=== PATIENT | male | born 2000 | race Caucasian/White ===

== ENCOUNTER 2019-01-25 03:28 | Emergency (ER) | payer OTHER, SELFPAY ==
[2019-01-25 03:30] VITALS: BP 143/82; PULSE 98; RESP 16; TEMP 37.1; O2SAT 97; BMI 25.9
[2019-01-25] MEDS: Ondansetron ODT 4 MG Tablet PO (04:20)
[2019-01-25] MEDS: Acetaminophen 500 MG Tablet 1000 MG PO (04:20)
--- NOTE | 2019-01-25 04:44 | ED.VISSUMM ---
- ER Visit Summary Date of Service: 01/25/19 Chief Complaint: Questionable coughing up blood History of Present Illness: The patient is a 18 M who tells me he was nauseated all day yesterday. A friend gave him red Anibal-Aid to drink. He ended up vomiting this up. He advises me that he vomited up red material, did not cough up blood. He is also complaining of sore throat for the past 3 days and is concerned he may have strep throat. He denies fever. He has not had dark or bloody stool. Physical Examination: Vital signs unremarkable. Patient sitting upright in bed no acute distress. Head and neck examination reveals moist mucous membranes. He does have posterior pharyngeal sinus drainage. Tonsils are 2+ with no exudate. Uvula is midline. Heart is regular rate and rhythm. Lung sounds are clear abdomen is soft with no focal tenderness. Hypoactive bowel sounds present. Test Results: Rapid strep is obtained and negative. Emergency Department Course and Treatment: Patient was given Zofran and Tylenol. On repeat evaluation he is tolerating p.o. Test results discussed with patient and family at bedside. He is given a prescription for Zofran as needed. Treatment Plan: [] Disposition: Discharge Impression: 1. Viral pharyngitis 2. Vomiting, improved This note was generated with [employer] dictation software. It may contain incorrect words, spelling, and punctuation that were not noted in review of the chart prior to signing ED Disposition - Plan for ED Patient: Disposition: Home or Assisted Living Instructions: ED Pharyngitis Viral, ED Nausea Vomiting Prescriptions: Ondansetron [Zofran Odt] 4 mg PO Q8H PRN PRN #10 tablet PRN Reason: Nausea Referrals: Anel Andersen MD [Primary Care Provider] - 3-5 Days if not improving
[2019-01-25 04:54] VITALS: PULSE 77; RESP 16; O2SAT 97
== END 2019-01-25 04:54 | disposition home or self-care (01) ==
PROVIDERS: Emergency Provider Emergency Medicine; Family Provider Pediatrics; PCP Pediatrics
DX: J02.9 Acute pharyngitis, unspecified (principal); R11.2 Nausea with vomiting, unspecified; F90.9 Attention-deficit hyperactivity disorder, unspecified type; Z72.0 Tobacco use
CPT/HCPCS: 87880; 99283

== ENCOUNTER 2020-02-23 01:26 | Emergency (ER) | payer SELFPAY ==
[2020-02-23 01:27] VITALS: BP 132/83; PULSE 70; RESP 18; TEMP 36.4; O2SAT 99; BMI 25.4
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
== END 2020-02-23 01:55 | disposition home or self-care (01) ==
LOC: ED 01:46
PROVIDERS: Emergency Provider Emergency Medicine; PCP Pediatrics
DX: S50.811A Abrasion of right forearm, initial encounter (principal); S90.512A Abrasion, left ankle, initial encounter; V19.9XXA Pedal cyclist (driver) (passenger) injured in unspecified traffic accident, initial encounter; Y93.55 Activity, bike riding; Y92.9 Unspecified place or not applicable; F17.200 Nicotine dependence, unspecified, uncomplicated
CPT/HCPCS: 99282

== ENCOUNTER → 2020-10-20 15:01 | Outpatient (CLI) | payer MEDICAID, SELFPAY | PROVIDERS: PCP Pediatrics; Referring Provider Obstetrics & Gynecology; Visit Provider Obstetrics & Gynecology | DX: Z31.440 Encounter of male for testing for genetic disease carrier status for procreative management (principal) | CPT/HCPCS: 36415 ==

== ENCOUNTER 2020-11-23 21:12 | Emergency (ER) | payer MEDICAID, SELFPAY ==
[2020-11-23 21:13] VITALS: BP 128/82; PULSE 75; RESP 18; TEMP 36.1; O2SAT 99; BMI 30.1
--- NOTE | 2020-11-23 21:32 | ED.DCSUM_ITS ---
History of Present Illness Chief Complaint: Wound Check Narrative: Patient presents with right great toe infection for the past 2 days. He thinks there may be an ingrown toenail. No fever chills no streaking. Pain is mild to moderate. Past medical history: None Medications: None Social history: Noncontributory Review of systems: General: Denies: Fever Musculoskeletal: No pain Skin: No other rashes or lacerations Neurological: Normal strength and sensation Hematologic: Denies: Easy bruising, Easy bleeding Physical exam General: Well nourished, Well developed, No Acute Distress Head: Normocephalic, Atraumatic Cardiovascular: Normal pulses Respiratory: No distress Back: Nontender Extremities: There is a small paronychia of the right great toe. No ingrown toenail. This was drained just by putting pressure on it. Now it is fully drained. No cellulitis. Skin: Normal color, otherwise as above Neurological: Normal strength and sensation Past Medical History - Allergies and Home Meds Allergies/Adverse Reactions: Allergies No Known Allergies Allergy (Verified 11/23/20 21:15) Primary Care Physician: NOT,DEFINED [Primary Care Provider] - Surgical History: no surgical history Smoking Status: Current every day smoker Physical Exam Vital Signs/Narrative: Vital Signs Temp Pulse Resp BP Pulse Ox 11/23/20 21:13 97 F L 75 18 128/82 H 99 Diagnostic/Tx/Re-eval - Medical Decision Making Paronychia is self draining. I will give antibiotics and discharged with reassurance. ED Disposition - Plan for ED Patient: Disposition: Home or Assisted Living Diagnosis: Paronychia Instructions: ED Paronychia of the Finger or Toe Prescriptions: Cephalexin [Keflex] 500 mg PO Q12 #14 cap Transmission Status: Pending to [facility] Referrals: NOT,DEFINED [Primary Care Provider] - 2 Days
[2020-11-23] MEDS: Cephalexin 250 MG Capsule 500 MG PO (21:58)
== END 2020-11-23 22:00 | disposition home or self-care (01) ==
LOC: ED 21:46
PROVIDERS: Emergency Provider Emergency Medicine
DX: L03.031 Cellulitis of right toe (principal); F17.200 Nicotine dependence, unspecified, uncomplicated
CPT/HCPCS: 99283

== ENCOUNTER 2021-08-30 16:03 | Emergency (ER) | payer MEDICAID, SELFPAY ==
[2021-08-30 16:04] VITALS: BP 139/83; PULSE 93; RESP 18; TEMP 36.6; O2SAT 97; BMI 25.1
--- NOTE | 2021-08-30 16:08 | RAD_ITS ---
STUDY: X-RAY CHEST REASON FOR EXAM: Male, 21 years old. cough TECHNIQUE: AP COMPARISON: None. FINDINGS: The lungs are clear and expanded. There is no demonstrated pleural abnormality. Normal size heart. Normal mediastinum and sari. Normal visualized pulmonary arteries. Normal visualized aortic arch and descending thoracic aorta. Normal visualized thoracic spine. Normal visualized ribs, clavicles, and shoulders. There is no demonstrated abnormality of the visualized soft tissue structures of the upper abdomen. RAD/Chest 1 View IMPRESSION: Nonacute portable x-ray examination of the chest. Electronically Signed: Rashawn Solomon MD ([place]) at 16:18 EST , Service support ,
[2021-08-30 17:16] VITALS: BP 132/86; PULSE 86; RESP 16; TEMP 36.9; O2SAT 100
--- NOTE | 2021-08-30 17:38 | EX.ED.DYSGE1 ---
HPI History of Present Illness Chief Complaint: Cough Informant: patient Narrative Narrative: 21-year-old male states that 4 days ago he began to feel ill with malaise/fatigue body aches rhinorrhea and cough. No fever or sore throat. No vomiting or diarrhea. He is not Covid vaccinated. He notes a history of asthma as a child and states that he does feel wheezy/chest tightness. [facility] Medical History (Updated 08/30/21 @ 17:[address] Jan Lin DO) Asthma Medical History no medical history Home Medications prednisone 60 mg PO DAILY #12 tablet 08/30/21 [Rx Last Taken Unknown] Allergy/AdvReac Type Severity Reaction Status Date / Time No Known Allergies Allergy Verified 11/23/20 21:15 Surgical History no surgical history Social History (Updated 08/30/21 @ 17:[address] Jan Lin DO) current gender identity: male Smoking Status: Current every day smoker tobacco type: cigarettes ROS ROS ED Constitutional Constitutional ED: Reports chills; Denies fever(s) or weight loss Eyes Eyes: Denies change in vision or diplopia ENT ENT ED: Reports rhinorrhea; Denies ear pain or sore throat Cardiovascular Cardiovascular: Denies chest pain, orthopnea, palpitations or racing heartbeat Respiratory/Chest Respiratory/Chest: Reports cough and dyspnea; Denies orthopnea Gastrointestinal Gastrointestinal: Denies abdominal pain, diarrhea, nausea or vomiting Genitourinary Genitourinary ED: Denies dysuria, hematuria or urinary frequency Musculoskeletal Musculoskeletal: Reports myalgias; Denies arthralgias Integumentary Denies abscess or rash Neurologic Neurologic: Denies headache(s) or weakness Psychiatric Psychiatric: Denies anxiety, depression, suicidal ideation or suicidal thoughts Endocrine Endocrinology: Denies polydipsia, polyphagia or polyuria Allergic/Immunologic Allergic/Immunologic ED: Denies mouth swelling, tongue swelling or urticaria EXAM Physical Exam Const Vital Signs: 08/30/21 16:04 08/30/21 17:16 Temperature 98 F 98.4 F Temperature Source Temporal Temporal Pulse Rate 93 86 Respiratory Rate 18 16 Respiratory Effort Short of Breath Labored Respiratory Depth Normal Respiratory Pattern Normal Blood Pressure 139/83 H 132/86 H Blood Pressure Mean 101 101 Pulse Ox 97 100 Oxygen Delivery Method Room Air Room Air Positive well nourished and well developed General Appearance ED: well developed HEENT Reports normocephalic, head/scalp atraumatic, TM's clear and moist mucous membranes HEENT Narrative: Clear rhinorrhea Negative for trauma Tympanic Membrane ED: Yes TM's clear Eyes PERRL and EOMs intact bilaterally Neck no lymphadenopathy, supple and no JVD Resp normal respiratory effort Auscultation: rhonchi and wheezes expiratory wheezes Cardio regular rate, regular rhythm and no murmurs GI normal to inspection, nondistended, normoactive bowel sounds and non-tender Palpation: soft Back/Spine no CVA tenderness and normal ROM Extremity normal to inspection General Extremety ED: Negative for edema General Extremity: Negative for edema Neuro oriented x3 and CN's II-XII intact bilaterally Sensorium / Orientation: alert Motor Exam: strength 5/5 throughout Psych mental status grossly normal Mood & Affect: Negative for depressed or tearful Skin no rashes or lesions noted and no wounds MDM MDM MDM Narrative Medical decision making narrative: Covid test is negative. My interpretation of the chest x-ray is no acute process. Patient received a DuoNeb as well as prednisone. I will prescribe albuterol MDI as well as continued prednisone. Smoking cessation counseling was provided. Radiography Diagnostic Testing: Clinical Impression(s) from Imaging Studies Chest X-Ray 08/30/21 16:08 IMPRESSION: Nonacute portable x-ray examination of the chest. Electronically Signed: Rashawn Solomon MD ([place]) at 16:18 EST , Service support , Discharge Plan Triage Chief Complaint: Cough ED Provider: Jan Lin Dx/Rx/DC Orders Clinical Impression: Acute bronchitis with bronchospasm Instructions: ED Bronchitis with Wheezing (Adult) Prescriptions: New prednisone 20 MG tablet 60 mg PO DAILY Qty: 12 RF: 0 Primary Care Provider: Care Physician,No Primary Referrals: Bentley Hannon MD [STAFF PHYSICIAN] - As Needed (for primary care) Care Physician,No Primary [Primary Care Provider] - Disposition Disposition: Home, Self Care
[2021-08-30] MEDS: predniSONE 20 MG Tablet 60 MG PO (17:40)
[2021-08-30] MEDS: Ipratropium/Albuterol Sulfate 3 ML AMPUL.NEB INHALATION (17:47)
[2021-08-30] MEDS: INHALER, ASSIST DEVICES 1 EACH SPACER INHALATION (17:47)
== END 2021-08-30 18:05 | disposition home or self-care (01) ==
PROVIDERS: Emergency Provider Emergency Medicine
DX: J20.9 Acute bronchitis, unspecified (principal); J45.909 Unspecified asthma, uncomplicated; F17.210 Nicotine dependence, cigarettes, uncomplicated
CPT/HCPCS: 71045; 87426; 94640; 99283

== ENCOUNTER 2021-09-17 07:27 | Emergency (ER) | payer MEDICAID, SELFPAY ==
[2021-09-17 07:28] VITALS: BP 127/60; PULSE 68; RESP 16; TEMP 35.8; O2SAT 98; BMI 27.3
--- NOTE | 2021-09-17 07:41 | EX.ED.DYSGE1 ---
HPI History of Present Illness Chief Complaint: Abd Pain Informant: patient Narrative Narrative: And states that he ate some hamburger helper made with beef that he got from the [employer] [facility], [place] [employer]. He states he normally gets an upset stomach when he eats hamburger helper. This happened but was little bit worse than normal. He has vomited a few times. No blood has been seen. Slightly soft bowel movement but no diarrhea. All his discomfort is in the epigastric area. It comes and goes. He gets cramping he will vomit and then the discomfort goes away. It is getting progressively less. No fever. No history of surgical in the abdomen. No personal or family history of Crohn's or ulcerative colitis. [facility] Medical History (Updated 09/17/21 @ 08:[address] Prince Judd MD) Asthma Medical History no medical history no medical history Home Medications dicyclomine 20 mg PO TID PRN #10 tab 09/17/21 [Rx Last Taken Unknown] ondansetron 4 mg PO Q8H PRN #10 tab 09/17/21 [Rx Last Taken Unknown] Allergy/AdvReac Type Severity Reaction Status Date / Time No Known Allergies Allergy Verified 11/23/20 21:15 Surgical History History of adenoidectomy Social History Smoking Status: Current every day smoker tobacco type: cigarettes ROS ROS ED Constitutional Constitutional ED: Denies chills or fever(s) ENT ENT ED: Denies rhinorrhea or sore throat Cardiovascular Cardiovascular: Denies chest pain or palpitations Respiratory/Chest Respiratory/Chest: Denies cough or dyspnea Gastrointestinal Gastrointestinal: Reports abdominal pain, diarrhea, nausea and vomiting; Denies constipation or melena Genitourinary Genitourinary ED: Denies dysuria Musculoskeletal Musculoskeletal: Denies back pain Integumentary Denies rash Neurologic Neurologic: Denies headache(s) Endocrine Endocrinology: Denies polydipsia or polyuria Allergic/Immunologic Allergic/Immunologic ED: Denies mouth swelling or urticaria EXAM Physical Exam Const Vital Signs: 09/17/21 07:28 Temperature 96.5 F L Temperature Source Temporal Pulse Rate 68 Respiratory Rate 16 Blood Pressure 127/60 H Blood Pressure Mean 82 Pulse Ox 98 Oxygen Delivery Method Room Air Positive well nourished and well developed General Appearance ED: well developed and NAD HEENT Reports dry mucous membranes HEENT Narrative: Mildly dry mucous membranes. Mouth ED: Yes dry mucous membranes Mouth: dry mucous membranes Eyes General Eye ED: Negative for scleral icterus Neck no JVD Resp normal respiratory effort and clear to auscultation bilaterally Effort and Inspection: Negative for pain with movement Auscultation: Negative for rales, rhonchi or wheezes Cardio regular rate and regular rhythm GI normal to inspection, nondistended, normoactive bowel sounds and non-distended GI Narrative: Possible mild epigastric tenderness only with deep palpation. No right upper quadrant tenderness. No discomfort by history or exam in the lower abdomen. No rashes. No hernia noted. Palpation: soft Back/Spine no CVA tenderness Extremity normal to inspection Neuro oriented x3 Sensorium / Orientation: alert Psych mental status grossly normal Skin no rashes or lesions noted MDM MDM MDM Narrative Medical decision making narrative: Patient CBC, electrolytes, liver function test and lipase show no marked abnormalities. Patient's recheck. He has no nausea. He has had no vomiting. His abdomen is not sore cramping. He has no tenderness in his abdomen. He feels markedly improved. I think this is likely due to the foods that he ate. It is improving before he came in here and improved now even more. I do not think further evaluation, imaging or consultation as needed. We did discuss reasons to return that would include return of pain, fevers, recurrent vomiting, blood in vomitus or stool or other concerns. Lab Data Attestation: I reviewed the patient's lab results. Labs: Laboratory Results - last 24 hr 09/17/21 09/17/21 07:40 07:40 WBC 9.0 RBC 4.98 Hgb 14.4 Hct 43.0 MCV 86.3 MCH 28.9 MCHC 33.5 RDW Std Deviation 39.5 RDW Coeff of Bart 12.7 Plt Count 292 MPV 8.3 Immature Gran % (Auto) 0.300 Neut % (Auto) 68.6 Lymph % (Auto) 18.3 L [place] % (Auto) 11.3 H Eos % (Auto) 1.1 Baso % (Auto) 0.4 Absolute Neuts (auto) 6.1 Absolute Lymphs (auto) 1.64 Nucleated RBC % 0 Sodium 139 Potassium 3.6 Chloride 104 Carbon Dioxide 27.0 Anion Gap 8 BUN 22 H Creatinine 0.99 Estim Creat Clear Calc 123.60 Est GFR (MDRD) Af Amer 120 Est GFR (MDRD) Non-Af 100 BUN/Creatinine Ratio 22.3 H Glucose 111 H Calcium 9.3 Total Bilirubin 1.00 AST 12 L ALT 27 Alkaline Phosphatase 69 Total Protein 8.1 Albumin 4.3 Globulin 3.8 Albumin/Globulin Ratio 1.1 Lipase 247 Discharge Plan Triage Chief Complaint: Abd Pain ED Provider: Prince Judd Dx/Rx/DC Orders Clinical Impression: Acute epigastric pain, Nausea & vomiting Instructions: ED Epigastric Pain Uncertain Cause Prescriptions: New ondansetron 4 mg tablet,disintegrating 4 mg PO Q8H PRN (Reason: nausea and vomiting) Qty: 10 RF: 0 dicyclomine 20 mg tablet 20 mg PO TID PRN (Reason: cramping) Qty: 10 RF: 0 Primary Care Provider: Care Physician,No Primary Referrals: Marilyn Reveles MD [STAFF PHYSICIAN] - 3-5 Days if not improving Care Physician,No Primary [Primary Care Provider] - Disposition Disposition: Home, Self Care
[2021-09-17] MEDS: 0.9% Normal Saline 1,000 ML 1000 ML IV (07:50)
[2021-09-17] MEDS: Ondansetron 4 MG/2 ML Vial IV (07:50)
[2021-09-17] MEDS: Dicyclomine 20 MG/2 ML Vial IM (07:51)
[2021-09-17 07:57] LABS: Absolute Lymphocyte Count 1.64 X10^3/uL (0.83-4.51); Absolute Neutrophil Count 6.1 X10^3/uL (2.0-7.7); Basophil# 0.04 X10^3/uL; Basophil% 0.4 % (0-1); Eosinophils% 1.1 % (0-5); Hemoglobin 14.4 g/dL (13.0-16.5); Lymphocyte # 1.64 X10^3/ul (0.83-4.51); Lymphocyte % 18.3 % (19-41); Mean Corp Hgb Conc 33.5 g/dL (32-36); Mean Corpuscular Hgb 28.9 pg (27.0-32.0); Mean Corpuscular Volume 86.3 fL (80-94); Mean Platelet Vol. 8.3 fl (6.2-12.0); Monocyte# 1.01 X10^3/uL; Monocyte% 11.3 % (0-10); NRBC Flagged by Analyzer 0 % (0-5); Neutrophil # 6.14 X10^3/uL (2.7-7.7); Neutrophil % 68.6 % (47-70); Platelet Count 292 K/mm3 (150-450); RBC Distribution Width CV 12.7 % (11.6-14.6); RBC Distribution Width SD 39.5 fl (35.1-43.9); Red Blood Count 4.98 M/mm3 (4.6-6.2)
[2021-09-17 08:18] LABS: ALB/GLOB Ratio 1.1 RATIO (0.9-2.4); AST(SGOT) 12 U/L (15-37); Alanine Aminotransfer ALT/SGPT 27 U/L (16-61); Albumin, Serum 4.3 g/dL (3.2-5.0); Alkaline Phosphatase 69 U/L (45-117); Anion Gap 8 (5-15); BUN 22 mg/dL (7-18); BUN/Creat Ratio 22.3 RATIO (10-20); Calcium,Total 9.3 mg/dL (8.5-10.1); Chloride 104 mmol/L (98-107); Creatinine, Serum 0.99 mg/dL (0.70-1.30); EST Glomerular Filtration Rate 100 mL/min (>60); Est Glom Filt Rate - Afr Amer 120 mL/min (>60); Globulin 3.8 g/dL (2.2-4.2); Glucose 111 mg/dL (74-106); Lipase 247 U/L (73-393); Potassium 3.6 mmol/L (3.5-5.1); Protein, Total 8.1 g/dL (6.4-8.2); Sodium Level 139 mmol/L (136-145)
== END 2021-09-17 08:44 | disposition home or self-care (01) ==
PROVIDERS: Emergency Provider Emergency Medicine
DX: R10.13 Epigastric pain (principal); R11.2 Nausea with vomiting, unspecified; J45.909 Unspecified asthma, uncomplicated; F17.210 Nicotine dependence, cigarettes, uncomplicated
CPT/HCPCS: 80053; 83690; 85025; 96361; 96372; 96374; 99282; J7030; A4216; J2405

== ENCOUNTER 2021-09-17 20:08 | Observation (INO) | payer MEDICAID, SELFPAY ==
[2021-09-17 20:09] VITALS: BP 114/75; PULSE 76; RESP 16; TEMP 36.4; O2SAT 99; BMI 27.3
--- NOTE | 2021-09-17 20:32 | ED.VIS.GI ---
HPI <Dr. Asim Mcghee MD - Last Filed: 09/17/21 23:07> HPI - GI History of Present Illness Chief Complaint: Abd Pain Informant: patient Abdominal Pain/Flank Pain Onset: Yesterday Context: Gradual Onset (after eating hamburger helper) Timing: Intermittent Quality: Sharp Location: - (periumbilical) Current Severity: Moderate Maximum Severity: Moderate Worsened by: Nothing Relieved by: Nothing Nausea/Vomiting/Emesis GI Symptom: Positive for Nausea and Vomiting Onset: Today Quality: Positive for Nonbilious; Negative for Blood streaks, Coffee ground and Hematemesis Diarrhea/Melena/Hematochezia GI Symptom: Negative for Diarrhea, Melena and Hematochezia Associated Symptoms Associated Symptoms: Negative for Dysuria, Frequency, Hematuria and Urgency Narrative Narrative: Patient was here this morning for the same symptoms, he was treated here in the ER and his symptoms resolved, he went home took a nap states he woke up 3 hours ago or so with the same symptoms, periumbilical sharp pains, nausea/vomiting. States he was able to keep some dicyclomine down but it did not help anything. States that he tried the Zofran but vomited it up even though it was an ODT. No history of any abdominal surgeries. No fevers, chills, hematemesis, hematochezia, or any other new symptoms. PFSH <Dr. Asim Mcghee MD - Last Filed: 09/17/21 23:07> [facility] Medical History Asthma Home Medications dicyclomine 20 mg PO TID PRN #10 tab 09/17/21 [Rx Last Taken Unknown] ondansetron 4 mg PO Q8H PRN #10 tab 09/17/21 [Rx Last Taken Unknown] Allergy/AdvReac Type Severity Reaction Status Date / Time No Known Allergies Allergy Verified 09/17/21 20:10 Surgical History History of adenoidectomy Social History Smoking Status: Current every day smoker tobacco type: cigarettes ROS <Dr. Asim Mcghee MD - Last Filed: 09/17/21 23:07> ROS ED Constitutional Constitutional ED: Denies chills or fever(s) Eyes Eyes: Denies change in vision or diplopia ENT ENT ED: Denies rhinorrhea or sore throat Cardiovascular Cardiovascular: Denies chest pain or palpitations Respiratory/Chest Respiratory/Chest: Denies cough or dyspnea Gastrointestinal Gastrointestinal: Reports as per HPI, abdominal pain, nausea and vomiting; Denies diarrhea Genitourinary Genitourinary ED: Denies dysuria or hematuria Musculoskeletal Musculoskeletal: Denies back pain or neck pain Integumentary Denies abscess or rash Neurologic Neurologic: Denies headache(s), paresthesias or weakness Psychiatric Psychiatric: Denies anxiety or suicidal thoughts EXAM <Dr. Asim Mcghee MD - Last Filed: 09/17/21 23:07> Physical Exam Const Vital Signs: 09/17/21 20:09 09/17/21 23:11 Temperature 97.6 F L Temperature Source Temporal Pulse Rate 76 56 L Respiratory Rate 16 18 Blood Pressure 114/75 115/60 Blood Pressure Mean 88 78 Pulse Ox 99 98 Oxygen Delivery Method Room Air Positive well nourished and well developed Constitutional Narrative: Well-appearing, smiling throughout evaluation General Appearance ED: well developed and NAD HEENT Reports moist mucous membranes normocephalic and atraumatic Eyes PERRL and EOMs intact bilaterally Neck full ROM and supple Resp normal respiratory effort and clear to auscultation bilaterally Cardio regular rate, regular rhythm and no murmurs GI non-distended GI Narrative: Mildly tender periumbilical area, no hernia, no guarding or rebound tenderness, no other areas of tenderness negative Cagle's Auscultation: normoactive bowel sounds Palpation: soft Back/Spine no CVA tenderness General Back: other FROM Extremity normal to inspection General Extremety ED: Negative for edema, pulses abnormal or tenderness General Extremity: Negative for edema or pulses abnormal Neuro oriented x3, CN's II-XII intact bilaterally and no sensory deficits noted Sensorium / Orientation: awake and alert Motor Exam: strength 5/5 throughout Skin no rashes or lesions noted and no wounds <Phong Jackman MD - Last Filed: 09/18/21 02:06> Physical Exam Const Vital Signs: 09/17/21 20:09 09/17/21 23:11 Temperature 97.6 F L Temperature Source Temporal Pulse Rate 76 56 L Respiratory Rate 16 18 Blood Pressure 114/75 115/60 Blood Pressure Mean 88 78 Pulse Ox 99 98 Oxygen Delivery Method Room Air [facility] <Dr. Asim Mcghee MD - Last Filed: 09/17/21 23:07> [facility] Narrative Medical decision making narrative: Reviewed patient's work-up from earlier today, his labs are unremarkable, as was his exam. He was treated symptomatically and got better, symptoms resolved and now he came back. He was given a GI cocktail and an injection of Reglan, tolerated all of this without any vomiting and tolerated a p.o. challenge, but stated that his pain got worse subsequently and he was moaning in pain. I did not suspect there is anything emergent here, however given the fact that he did not improve with these medications I performed a CT without contrast, radiology called about disc saying that although did not have contrast, it appears to be an acute bowel obstruction with a transition point to mid jejunum and with some vascular congestion in the affected loops of bowel. Surgical consultation advised. This was done, IV was placed, he was given fluids and labs were drawn, and discussed w/ Dr. Del Valle with surgery who reviewed the ancillary testing and recommends repeating the CT with oral and IV contrast, which will be done. I reevaluated the patient prior to this being performed, he says he feels much better after getting Toradol and an injection of Bentyl, which was done before the CT resulted, and on reexamination he is barely tender in his periumbilical area at all, no other areas of abdominal tenderness. At this time we will maintain n.p.o. status, turned over to night physician at shift change. Lab Data Labs: Laboratory Results - last 24 hr 09/17/21 09/17/21 09/17/21 23:08 23:08 23:08 WBC 11.1 H RBC 4.72 Hgb 14.0 Hct 40.1 MCV 85.0 MCH 29.7 MCHC 34.9 RDW Std Deviation 39.5 RDW Coeff of Bart 12.7 Plt Count 250 MPV 8.5 Immature Gran % (Auto) 1.400 H Neut % (Auto) 81.4 H Lymph % (Auto) 8.6 L [place] % (Auto) 7.9 Eos % (Auto) 0.3 Baso % (Auto) 0.4 Absolute Neuts (auto) 9.0 H Absolute Lymphs (auto) 0.95 Nucleated RBC % 0 Sodium 140 Potassium 3.6 Chloride 106 Carbon Dioxide 26.0 Anion Gap 8 BUN 16 Creatinine 0.90 Estim Creat Clear Calc 135.96 Est GFR (MDRD) Af Amer 133 Est GFR (MDRD) Non-Af 110 BUN/Creatinine Ratio 17.7 Glucose 100 Lactic Acid 0.7 Calcium 9.1 Total Bilirubin 0.80 AST 17 ALT 23 Alkaline Phosphatase 65 Total Protein 7.5 Albumin 4.1 Globulin 3.4 Albumin/Globulin Ratio 1.2 Lipase 129 Radiography Diagnostic Testing: Clinical Impression(s) from Imaging Studies Abdomen/Pelvis CT 09/17/21 21:44 IMPRESSION: Mildly distended small bowel loops with air-fluid levels consistent with small bowel obstruction. Mild hazy associated vasculature concerning for early vascular congestion. Surgical consultation is recommended. Electronically Signed: Brennen Dougherty DO at 22:58 EST Tel , Service support , ADDENDUM: 09/18/21 0026 IMPRESSION: Mildly distended small bowel loops with air-fluid levels consistent with small bowel obstruction. Mild hazy associated vasculature concerning for early vascular congestion. Surgical consultation is recommended. N.B. : The above Results were Read Back by Brennen Dougherty DO to Asim Mcghee MD, and understanding confirmed on 09/18/2021 00:19:23 (ET). Electronically Signed: Brennen Dougherty DO at 22:58 EST Tel , Service support , Abdomen/Pelvis CT 09/17/21 23:05 IMPRESSION: Again noted mildly distended, stacked distal ileal bowel loops with air-fluid levels. Small amount of fluid seen between stacked bowel loops, best appreciated on coronal images. There is also mild mesenteric vascular congestion. No mesenteric lymphadenopathy. Electronically Signed: Brennen Dougherty DO at 1:53 EST Tel , Service support , <Phong Jackman MD - Last Filed: 09/18/21 02:06> MDM MDM Narrative Medical decision making narrative: Dr. Jackman: Patient was endorsed to me by Dr. Asim Mcghee to check the labs and a second CT scan with oral and IV contrast on this patient who was having abdominal pain. White count has increased to 11.1, hemoglobin stable at 14.0. CMP is grossly unremarkable, with a lactic acid normal at 0.7. AST and ALT are normal. Alk phos is also normal. Lipase normal at 129. Second CT again shows mildly distended small bowel loops with air-fluid levels in the distal ileum. Upon repeat examination, patient states he feels improved. His abdomen is soft and nontender. Given the CT findings, I did discuss the patient with Dr. Del Valle who states he will observe the patient overnight on the medical surgical floor. He will evaluate the patient in the ED. Disposition is assigned to observation. Patient is in stable condition. Lab Data Attestation: I reviewed the patient's lab results. Labs: Laboratory Results - last 24 hr 09/17/21 09/17/21 09/17/21 23:08 23:08 23:08 WBC 11.1 H RBC 4.72 Hgb 14.0 Hct 40.1 MCV 85.0 MCH 29.7 MCHC 34.9 RDW Std Deviation 39.5 RDW Coeff of Bart 12.7 Plt Count 250 MPV 8.5 Immature Gran % (Auto) 1.400 H Neut % (Auto) 81.4 H Lymph % (Auto) 8.6 L [place] % (Auto) 7.9 Eos % (Auto) 0.3 Baso % (Auto) 0.4 Absolute Neuts (auto) 9.0 H Absolute Lymphs (auto) 0.95 Nucleated RBC % 0 Sodium 140 Potassium 3.6 Chloride 106 Carbon Dioxide 26.0 Anion Gap 8 BUN 16 Creatinine 0.90 Estim Creat Clear Calc 135.96 Est GFR (MDRD) Af Amer 133 Est GFR (MDRD) Non-Af 110 BUN/Creatinine Ratio 17.7 Glucose 100 Lactic Acid 0.7 Calcium 9.1 Total Bilirubin 0.80 AST 17 ALT 23 Alkaline Phosphatase 65 Total Protein 7.5 Albumin 4.1 Globulin 3.4 Albumin/Globulin Ratio 1.2 Lipase 129 Radiography Diagnostic Testing: Clinical Impression(s) from Imaging Studies Abdomen/Pelvis CT 09/17/21 21:44 IMPRESSION: Mildly distended small bowel loops with air-fluid levels consistent with small bowel obstruction. Mild hazy associated vasculature concerning for early vascular congestion. Surgical consultation is recommended. Electronically Signed: Brennen Dougherty DO at 22:58 EST Tel , Service support , ADDENDUM: 09/18/21 0026 IMPRESSION: Mildly distended small bowel loops with air-fluid levels consistent with small bowel obstruction. Mild hazy associated vasculature concerning for early vascular congestion. Surgical consultation is recommended. N.B. : The above Results were Read Back by Brennen Dougherty DO to Asim Mcghee MD, and understanding confirmed on 09/18/2021 00:19:23 (ET). Electronically Signed: Brennen Dougherty DO at 22:58 EST Tel , Service support , Abdomen/Pelvis CT 09/17/21 23:05 IMPRESSION: Again noted mildly distended, stacked distal ileal bowel loops with air-fluid levels. Small amount of fluid seen between stacked bowel loops, best appreciated on coronal images. There is also mild mesenteric vascular congestion. No mesenteric lymphadenopathy. Electronically Signed: Brennen Dougherty DO at 1:53 EST Tel , Service support , Discharge Plan Dx/Rx/DC Orders Clinical Impression: Small bowel obstruction Disposition Disposition: Acute Care Hospital [facility]
[2021-09-17] MEDS: Pantoprazole Sodium 40 MG Tablet PO (20:38)
[2021-09-17] MEDS: Metoclopramide 10 MG/2 ML Vial 5 MG IM (20:39)
[2021-09-17] MEDS: Mag Hydrox/Al Hydrox/Simeth 30 ML UDC PO (20:42)
--- NOTE | 2021-09-17 21:44 | CT_ITS ---
We are attempting to reach an attending provider to discuss findings. An addendum with communication details will be sent when the communication is complete. INDICATION: diffuse abd pain, n/v EXAMINATION: CT ABDOMEN AND PELVIS WITHOUT CONTRAST - CT Abdomen And Pelvis W/O Contrast Injection TECHNIQUE: Helically acquired images were obtained of the abdomen and pelvis without oral or IV contrast. A radiation dose optimization technique was used for this scan. IV Contrast dosage and agent: None. Oral contrast: None. COMPARISON: None. FINDINGS: LOWER CHEST: Lung bases are clear. No cardiomegaly or pericardial effusion. LIVER: Homogeneous. No focal mass. GALLBLADDER AND BILIARY TREE: No calcified gallstones. No gallbladder distension or wall edema. No intra- or extrahepatic biliary ductal dilation. PANCREAS: No focal cystic or solid mass. SPLEEN: Normal size without focal cystic or solid mass. ADRENAL GLANDS: No nodules. KIDNEYS AND URETERS: Normal renal size and position. No hydronephrosis. PERITONEUM: No ascites or free air. No other fluid collection. BOWEL: Several distended small bowel loops 3 cm in diameter with air-fluid levels are associated with some mild vascular congestion in the right mid abdomen and pelvis. Other bowel loops including the distal ileum are completely collapsed. Small amount of air seen in the proximal colon with mostly collapsed distal colon. No intussusception exemplified. No focal mass lesion. No bowel wall thickening suggested however no intravenous contrast limits assessment. LYMPH NODES: No enlarged mesenteric or retroperitoneal lymph nodes. VESSELS: Aorta is non-dilated. URINARY BLADDER: Unremarkable. REPRODUCTIVE ORGANS: No pelvic masses. ABDOMINAL WALL: No discrete abdominal or pelvic wall hernia. BONES: No lytic or blastic abnormality. CT/Abdomen/Pelvis without Cont IMPRESSION: Mildly distended small bowel loops with air-fluid levels consistent with small bowel obstruction. Mild hazy associated vasculature concerning for early vascular congestion. Surgical consultation is recommended. Electronically Signed: Brennen Dougherty DO at 22:58 EST Tel , Service support ,
[2021-09-17] MEDS: Ketorolac 60 MG/2 ML Vial IM (21:54)
[2021-09-17] MEDS: Dicyclomine 20 MG/2 ML Vial IM (21:54)
--- NOTE | 2021-09-17 23:05 | CT_ITS ---
INDICATION: abd pain, n/v, abn CT -- image after about an hour post oral contrast EXAMINATION: CT ABDOMEN AND PELVIS WITH CONTRAST - CT Abdomen And Pelvis W/ Contrast Injection TECHNIQUE: Helically acquired images were obtained of the abdomen and pelvis following IV contrast. A radiation dose optimization technique was used for this scan. IV Contrast dosage and agent: 100 mL of [id number] Oral contrast: None. COMPARISON: CT abdomen and pelvis without contrast 09/17/2021 FINDINGS: LOWER CHEST: Lung bases are clear. No cardiomegaly or pericardial effusion. LIVER: No infiltrative process or mass lesion. GALLBLADDER AND BILIARY TREE: No calcified gallstones. No gallbladder distension or wall edema. No intra- or extrahepatic biliary ductal dilation. PANCREAS: No focal cystic or solid mass. SPLEEN: Normal size without focal cystic or solid mass. ADRENAL GLANDS: No nodules. KIDNEYS AND URETERS: Normal renal size and position. No hydronephrosis. PERITONEUM: No ascites or free air. No other fluid collection. BOWEL: Again noted mildly distended, stacked distal ileal bowel loops with air-fluid levels. Small amount of fluid seen between stacked bowel loops, best appreciated on coronal images. There is also mild mesenteric vascular congestion. No mesenteric lymphadenopathy. LYMPH NODES: No enlarged mesenteric or retroperitoneal lymph nodes. VESSELS: Aorta is non-dilated. URINARY BLADDER: Unremarkable. REPRODUCTIVE ORGANS: No pelvic masses. ABDOMINAL WALL: No discrete abdominal or pelvic wall hernia. BONES: No lytic or blastic abnormality. CT/Abdomen/Pelvis WITH Contrast IMPRESSION: Again noted mildly distended, stacked distal ileal bowel loops with air-fluid levels. Small amount of fluid seen between stacked bowel loops, best appreciated on coronal images. There is also mild mesenteric vascular congestion. No mesenteric lymphadenopathy. Electronically Signed: Brennen Dougherty DO at 1:53 EST Tel , Service support ,
[2021-09-17 23:11] VITALS: BP 115/60; PULSE 56; RESP 18; O2SAT 98
[2021-09-17] MEDS: 0.9% Normal Saline 1,000 ML 999 ML IV (23:12)
[2021-09-17 23:30] LABS: Absolute Lymphocyte Count 0.95 X10^3/uL (0.83-4.51); Basophil# 0.04 X10^3/uL; Basophil% 0.4 % (0-1); Eosinophil# 0.03 X10^3/uL; Eosinophils% 0.3 % (0-5); Hematocrit 40.1 % (40-54); Lymphocyte # 0.95 X10^3/ul (0.83-4.51); Lymphocyte % 8.6 % (19-41); Mean Corp Hgb Conc 34.9 g/dL (32-36); Mean Corpuscular Hgb 29.7 pg (27.0-32.0); Mean Platelet Vol. 8.5 fl (6.2-12.0); Monocyte# 0.88 X10^3/uL; Monocyte% 7.9 % (0-10); NRBC Flagged by Analyzer 0 % (0-5); Neutrophil # 9.02 X10^3/uL (2.7-7.7); Neutrophil % 81.4 % (47-70); Platelet Count 250 K/mm3 (150-450); RBC Distribution Width CV 12.7 % (11.6-14.6); RBC Distribution Width SD 39.5 fl (35.1-43.9); Red Blood Count 4.72 M/mm3 (4.6-6.2); White Blood Count 11.1 K/mm3 (4.4-11.0)
[2021-09-17 23:33] LABS: ALB/GLOB Ratio 1.2 RATIO (0.9-2.4); AST(SGOT) 17 U/L (15-37); Alanine Aminotransfer ALT/SGPT 23 U/L (16-61); Albumin, Serum 4.1 g/dL (3.2-5.0); Alkaline Phosphatase 65 U/L (45-117); Anion Gap 8 (5-15); BUN 16 mg/dL (7-18); BUN/Creat Ratio 17.7 RATIO (10-20); Calcium,Total 9.1 mg/dL (8.5-10.1); Chloride 106 mmol/L (98-107); EST Glomerular Filtration Rate 110 mL/min (>60); Est Glom Filt Rate - Afr Amer 133 mL/min (>60); Estimated Creatinine Clearance 135.96 ml/min; Globulin 3.4 g/dL (2.2-4.2); Glucose 100 mg/dL (74-106); Lipase 129 U/L (73-393); Potassium 3.6 mmol/L (3.5-5.1); Protein, Total 7.5 g/dL (6.4-8.2); Sodium Level 140 mmol/L (136-145)
[2021-09-17 23:35] LABS: Lactic Acid 0.7 mmol/L (0.4-1.9)
[2021-09-18 02:17] VITALS: BP 114/53; PULSE 58; RESP 16; TEMP 36.8; O2SAT 99
--- NOTE | 2021-09-18 02:36 | PCM.HP.STD ---
HPI - General General Date of Admission: 09/18/21 HPI Tiffani MCCANN, is a 21 M who presents with abdominal pain and vomiting. Patient reports the pain started about 24 hours ago. He came into the emergency room earlier in the morning and the pain resolved and he went home and then the pain returned and he did vomit. Patient currently reports mild pain with no nausea. Patient does not report he is passing any flatus but he did have a bowel movement today. He has never had a bowel obstruction in the past. He has no surgical history. [facility] Medical History Asthma Home Medications dicyclomine 20 mg PO TID PRN #10 tab 09/17/21 [Rx Last Taken Unknown] ondansetron 4 mg PO Q8H PRN #10 tab 09/17/21 [Rx Last Taken Unknown] Allergy/AdvReac Type Severity Reaction Status Date / Time No Known Allergies Allergy Verified 09/17/21 20:10 Surgical History History of adenoidectomy Social History Smoking Status: Current every day smoker tobacco type: cigarettes ROS Constitutional Constitutional: Denies anorexia, fatigue or fever(s) Eyes Eyes: Denies blurry vision ENT HEENT: Denies abnormal hearing Cardiovascular Cardiovascular: Denies chest pain Respiratory/Chest Respiratory/Chest: Denies cough or dyspnea Gastrointestinal Gastrointestinal: Reports abdominal pain, nausea and vomiting; Denies constipation, diarrhea or dysphagia Genitourinary Genitourinary: Denies change in urinary stream Musculoskeletal Musculoskeletal: Denies abnormal gait Integumentary Integumentary: Denies jaundice Neurologic Neurologic: Denies abnormal gait Psychiatric Psychiatric: Denies anxiety Endocrine Endocrinology: Denies flushing Hematologic/Lymphatic Hematologic/Lymphatic: Denies easy bleeding Vital Signs Vital Signs Vital Signs: 09/17/21 20:09 09/17/21 23:11 09/18/21 02:17 Temperature 97.6 F L 98.2 F Temperature Source Temporal Temporal Pulse Rate 76 56 L 58 L Respiratory Rate 16 18 16 Blood Pressure 114/75 115/60 114/53 L Blood Pressure Mean 88 78 73 Pulse Ox 99 98 99 Oxygen Delivery Method Room Air Room Air Weight Weight: 196 lb Body Mass Index (BMI) 27.3 Physical Exam Const oriented x3 and no apparent distress HEENT normocephalic Eyes PERRL Neck full ROM Lymph Lymphatic: no lymphadenopathy noted Chest inspection of chest normal Resp normal respiratory effort Cardio regular rate and regular rhythm GI soft to palpation Palpation: tender other (Mild diffuse tenderness) Extremity normal to inspection Skin no rashes or lesions noted Neuro oriented x3 and CN's II-XII intact bilaterally Psych mental status grossly normal Results Lab / Micro Data Result Diagrams: 09/17/21 23:08 09/17/21 23:08 Labs: Laboratory Results - last 24 hr 09/17/21 23:08: WBC 11.1 H, RBC 4.72, Hgb 14.0, Hct 40.1, MCV 85.0, MCH 29.7, MCHC 34.9, RDW Std Deviation 39.5, RDW Coeff of Bart 12.7, Plt Count 250, MPV 8.5, Immature Gran % (Auto) 1.400 H, Neut % (Auto) 81.4 H, Lymph % (Auto) 8.6 L, [place] % (Auto) 7.9, Eos % (Auto) 0.3, Baso % (Auto) 0.4, Absolute Neuts (auto) 9.0 H, Absolute Lymphs (auto) 0.95, Nucleated RBC % 0 09/17/21 23:08: Sodium 140, Potassium 3.6, Chloride 106, Carbon Dioxide 26.0, Anion Gap 8, BUN 16, Creatinine 0.90, Estim Creat Clear Calc 135.96, Est GFR (MDRD) Af Amer 133, Est GFR (MDRD) Non-Af 110, BUN/Creatinine Ratio 17.7, Glucose 100, Calcium 9.1, Total Bilirubin 0.80, AST 17, ALT 23, Alkaline Phosphatase 65, Total Protein 7.5, Albumin 4.1, Globulin 3.4, Albumin/Globulin Ratio 1.2, Lipase 129 09/17/21 23:08: Lactic Acid 0.7 Micro: Microbiology 09/18/21 02:11 Nasal Secretion SARS-CoV-2 Antigen (Rapid) - Final Radiology Impression Abdomen/Pelvis CT 09/17/21 21:44 IMPRESSION: Mildly distended small bowel loops with air-fluid levels consistent with small bowel obstruction. Mild hazy associated vasculature concerning for early vascular congestion. Surgical consultation is recommended. Electronically Signed: Brennen Dougherty DO at 22:58 EST Tel , Service support , ADDENDUM: 09/18/21 0026 IMPRESSION: Mildly distended small bowel loops with air-fluid levels consistent with small bowel obstruction. Mild hazy associated vasculature concerning for early vascular congestion. Surgical consultation is recommended. N.B. : The above Results were Read Back by Brennen Dougherty DO to Asim Mcghee MD, and understanding confirmed on 09/18/2021 00:19:23 (ET). Electronically Signed: Brennen Dougherty DO at 22:58 EST Tel , Service support , Abdomen/Pelvis CT 09/17/21 23:05 IMPRESSION: Again noted mildly distended, stacked distal ileal bowel loops with air-fluid levels. Small amount of fluid seen between stacked bowel loops, best appreciated on coronal images. There is also mild mesenteric vascular congestion. No mesenteric lymphadenopathy. Electronically Signed: Brennen Dougherty DO at 1:53 EST Tel , Service support , Assessment & Plan Assessment/Plan (1) Nausea & vomiting: QUALIFIERS: Vomiting type: unspecified Qualified Code(s): R11.2 - Nausea with vomiting, unspecified PLAN: The patient has mild abdominal pain and his CT shows some dilated loops of small bowel. The patient has no surgical history. Patient does report he had a bowel movement today and there is stool in the colon. There is some dilation of the small bowel on CT and there was concern for some vascular congestion. I do not see any swelling to suggest an internal hernia. At this time the patient's pain is minimal and his vitals are all stable. I would like to admit the patient and start him on IV fluids and keep him n.p.o. and check a KUB in the morning and recheck labs in the morning. At this time there is no indication for urgent surgical intervention. I did explain to him that if there is no improvement, he may need surgical exploration to examine the bowel and make sure there is not a mechanical obstruction. Aquiles Del Valle MD Pager: [facility] [address] [place] [address] [address] [place] [address] Office:
[2021-09-18] MEDS: Morphine 4 MG/ML Syringe IV (02:57)
[2021-09-18 03:09] VITALS: BMI 26.4
[2021-09-18 03:10] VITALS: BP 122/76; PULSE 54; RESP 16; TEMP 36.2; O2SAT 99
[2021-09-18] MEDS: 0.9% Normal Saline 1,000 ML 125 ML IV (03:26)
[2021-09-18] MEDS: Ondansetron 4 MG/2 ML Vial IV (03:26)
[2021-09-18 05:26] LABS: Absolute Lymphocyte Count 1.34 X10^3/uL (0.83-4.51); Absolute Neutrophil Count 6.4 X10^3/uL (2.0-7.7); Basophil# 0.04 X10^3/uL; Basophil% 0.4 % (0-1); Eosinophil# 0.08 X10^3/uL; Eosinophils% 0.9 % (0-5); Hemoglobin 12.6 g/dL (13.0-16.5); Lymphocyte # 1.34 X10^3/ul (0.83-4.51); Lymphocyte % 14.8 % (19-41); Mean Corp Hgb Conc 33.2 g/dL (32-36); Mean Corpuscular Hgb 28.8 pg (27.0-32.0); Mean Corpuscular Volume 86.8 fL (80-94); Mean Platelet Vol. 8.5 fl (6.2-12.0); Monocyte# 1.17 X10^3/uL; Monocyte% 12.9 % (0-10); NRBC Flagged by Analyzer 0 % (0-5); Neutrophil % 70.6 % (47-70); Platelet Count 242 K/mm3 (150-450); RBC Distribution Width CV 12.8 % (11.6-14.6); RBC Distribution Width SD 40.5 fl (35.1-43.9); Red Blood Count 4.38 M/mm3 (4.6-6.2); White Blood Count 9.1 K/mm3 (4.4-11.0)
[2021-09-18 05:52] LABS: Anion Gap 7 (5-15); BUN 14 mg/dL (7-18); BUN/Creat Ratio 16.6 RATIO (10-20); Calcium,Total 8.9 mg/dL (8.5-10.1); Chloride 107 mmol/L (98-107); Creatinine, Serum 0.84 mg/dL (0.70-1.30); EST Glomerular Filtration Rate 120 mL/min (>60); Est Glom Filt Rate - Afr Amer 145 mL/min (>60); Estimated Creatinine Clearance 141.22 ml/min; Glucose 95 mg/dL (74-106); Potassium 3.3 mmol/L (3.5-5.1); Sodium Level 139 mmol/L (136-145)
--- NOTE | 2021-09-18 05:55 | RAD_ITS ---
EXAM: XR ABDOMEN, 1 VIEW : 2000 CLINICAL INDICATION: sbo TECHNIQUE: Frontal supine view of the abdomen/pelvis. This report was created using [employer] report generation technology. COMPARISON: CT from same date. FINDINGS: LOWER THORAX: No acute pathology. GASTROINTESTINAL TRACT: Multiple dilated loops of small bowel measuring up to 3.9 cm. ORGANS: Unremarkable as visualized. No organomegaly. No abnormal calcifications. BONES/JOINTS: No acute pathology. SOFT TISSUES: No acute pathology. RAD/Abdomen Single View (Portable) IMPRESSION: Multiple dilated loops of small bowel measuring up to 3.9 cm. Findings consistent with the recent CT findings. at 0753 Reported and signed by: Andrew Wilde MD Electronically Signed: Andrew Wilde MD at 7:52 EST Tel , Service support ,
[2021-09-18] MEDS: Morphine 2 MG/ML Syringe IV (06:22)
[2021-09-18] MEDS: 0.9% Saline Lock 10 ML Syringe IV (06:22)
[2021-09-18 07:50] VITALS: BP 115/63; PULSE 57; RESP 16; TEMP 36.6; O2SAT 98
--- NOTE | 2021-09-18 08:18 | PCM.PN.SRG ---
Subjective Subjective Patient reports that he is passing flatus with no nausea or vomiting overnight. He is not complaining of any abdominal pain this morning. Patient feels hungry. Objective Data Objective Data Vital Signs: Vital Signs Temp Pulse Resp BP Pulse Ox 97.8 F 57 L 16 115/63 98 09/18/21 07:50 09/18/21 07:50 09/18/21 07:50 09/18/21 07:50 09/18/21 07:50 Oxygen Delivery Method Room Air Weight: 188 lb 14.978 oz Body Mass Index (BMI) 26.4 Intake & Output: Intake and Output for Last 24 Hours 09/16/21 09/17/21 09/18/21 23:59 23:59 23:59 Intake Total 1570.83 / 1570.83 Balance 1570.83 / 1570.83 Lab / Micro Data Result Diagrams: 09/18/21 05:05 09/18/21 05:05 Labs: Laboratory Results - last 24 hr 09/17/21 23:08: WBC 11.1 H, RBC 4.72, Hgb 14.0, Hct 40.1, MCV 85.0, MCH 29.7, MCHC 34.9, RDW Std Deviation 39.5, RDW Coeff of Bart 12.7, Plt Count 250, MPV 8.5, Immature Gran % (Auto) 1.400 H, Neut % (Auto) 81.4 H, Lymph % (Auto) 8.6 L, [place] % (Auto) 7.9, Eos % (Auto) 0.3, Baso % (Auto) 0.4, Absolute Neuts (auto) 9.0 H, Absolute Lymphs (auto) 0.95, Nucleated RBC % 0 09/17/21 23:08: Sodium 140, Potassium 3.6, Chloride 106, Carbon Dioxide 26.0, Anion Gap 8, BUN 16, Creatinine 0.90, Estim Creat Clear Calc 135.96, Est GFR (MDRD) Af Amer 133, Est GFR (MDRD) Non-Af 110, BUN/Creatinine Ratio 17.7, Glucose 100, Calcium 9.1, Total Bilirubin 0.80, AST 17, ALT 23, Alkaline Phosphatase 65, Total Protein 7.5, Albumin 4.1, Globulin 3.4, Albumin/Globulin Ratio 1.2, Lipase 129 09/17/21 23:08: Lactic Acid 0.7 09/18/21 05:05: WBC 9.1, RBC 4.38 L, Hgb 12.6 L, Hct 38.0 L, MCV 86.8, MCH 28.8, MCHC 33.2, RDW Std Deviation 40.5, RDW Coeff of Bart 12.8, Plt Count 242, MPV 8.5, Immature Gran % (Auto) 0.400, Neut % (Auto) 70.6 H, Lymph % (Auto) 14.8 L, [place] % (Auto) 12.9 H, Eos % (Auto) 0.9, Baso % (Auto) 0.4, Absolute Neuts (auto) 6.4, Absolute Lymphs (auto) 1.34, Nucleated RBC % 0 09/18/21 05:05: Sodium 139, Potassium 3.3 L, Chloride 107, Carbon Dioxide 25.0, Anion Gap 7, BUN 14, Creatinine 0.84, Estim Creat Clear Calc 141.22, Est GFR (MDRD) Af Amer 145, Est GFR (MDRD) Non-Af 120, BUN/Creatinine Ratio 16.6, Glucose 95, Calcium 8.9 Micro: Microbiology 09/18/21 02:11 Nasal Secretion SARS-CoV-2 Antigen (Rapid) - Final Radiography Diagnostic Testing: Radiology Impression Abdomen/Pelvis CT 09/17/21 21:44 IMPRESSION: Mildly distended small bowel loops with air-fluid levels consistent with small bowel obstruction. Mild hazy associated vasculature concerning for early vascular congestion. Surgical consultation is recommended. Electronically Signed: Brennen Dougherty DO at 22:58 EST Tel , Service support , ADDENDUM: 09/18/21 0026 IMPRESSION: Mildly distended small bowel loops with air-fluid levels consistent with small bowel obstruction. Mild hazy associated vasculature concerning for early vascular congestion. Surgical consultation is recommended. N.B. : The above Results were Read Back by Brennen Dougherty DO to Asim Mcghee MD, and understanding confirmed on 09/18/2021 00:19:23 (ET). Electronically Signed: Brennen Dougherty DO at 22:58 EST Tel , Service support , Abdomen/Pelvis CT 09/17/21 23:05 IMPRESSION: Again noted mildly distended, stacked distal ileal bowel loops with air-fluid levels. Small amount of fluid seen between stacked bowel loops, best appreciated on coronal images. There is also mild mesenteric vascular congestion. No mesenteric lymphadenopathy. Electronically Signed: Brennen Dougherty, DO at 1:53 EST Tel , Service support , KUB X-Ray 09/18/21 05:55 IMPRESSION: Multiple dilated loops of small bowel measuring up to 3.9 cm. Findings consistent with the recent CT findings. at 0753 Reported and signed by: Andrew Wilde MD Electronically Signed: Andrew Wilde MD at 7:52 EST Tel , Service support , Physical Exam Const oriented x3 and no apparent distress Resp normal respiratory effort Cardio regular rate and regular rhythm GI soft to palpation and non-tender Inspection: Negative for abdominal distention Assessment & Plan Assessment/Plan (1) Small bowel obstruction: PLAN: The patient has CT scan yesterday which showed possible small bowel obstruction. The patient was admitted and kept n.p.o. and the patient started having bowel function. X-ray this morning does show distended loops of small bowel although there is gas in the colon and he is passing flatus. The x-ray may be lagging behind his physical exam. Patient feels hungry with no nausea and I will try clear liquids today. If the patient tolerates this he may be advanced but if he starts to develop nausea vomiting I will consider exploratory laparoscopy. Aquiles Del Valle MD Pager: [facility] [address] [place] [address], [address] [place] [address] Office:
[2021-09-18] MEDS: Potassium Chloride 10mEq/100mL 10 MEQ/100 ML IV.SOLN. 100 MEQ IV BOLUS ×3 (09:23→11:41)
[2021-09-18 14:45] VITALS: BP 139/98; PULSE 58; RESP 14; TEMP 36.7; O2SAT 99
--- NOTE | 2021-09-18 17:01 | PCM.PN.BLA ---
Progress Note patient tolerated clears with no nausea or vomiting. No abdominal pain. Patient had a BM and is passing flatus. Patient would like to be discharged home
--- NOTE | 2021-09-18 17:02 | PCM.DC.SUM ---
Providers Date of Admission: 09/18/21 Primary Care Physician: No Primary Care Phys Reason For Visit: SBO Diagnosis Discharge Diagnosis (1) Small bowel obstruction: Status: Acute Code(s): K56.609 - Unspecified intestinal obstruction, unspecified as to partial versus complete obstruction Hospital Course Operations None Procedures None Summary of Care Provided Hospital Course: patient was admitted with possible SBO. The following morning he was tolerating clears with no abdominal pain. Later that day he was advanced to regular diet. He tolerated with no abdominal pain or nausea. Pt had BM and wanted to be discharged home Weight / BMI Weight Weight: 188 lb 14.978 oz Body Mass Index (BMI) 26.4 ABG / Lab / Microbiology Data Result Diagrams: 09/18/21 05:05 09/18/21 05:05 Laboratory: Laboratory Results - last 24 hr 09/17/21 23:08: WBC 11.1 H, RBC 4.72, Hgb 14.0, Hct 40.1, MCV 85.0, MCH 29.7, MCHC 34.9, RDW Std Deviation 39.5, RDW Coeff of Bart 12.7, Plt Count 250, MPV 8.5, Immature Gran % (Auto) 1.400 H, Neut % (Auto) 81.4 H, Lymph % (Auto) 8.6 L, [place] % (Auto) 7.9, Eos % (Auto) 0.3, Baso % (Auto) 0.4, Absolute Neuts (auto) 9.0 H, Absolute Lymphs (auto) 0.95, Nucleated RBC % 0 09/17/21 23:08: Sodium 140, Potassium 3.6, Chloride 106, Carbon Dioxide 26.0, Anion Gap 8, BUN 16, Creatinine 0.90, Estim Creat Clear Calc 135.96, Est GFR (MDRD) Af Amer 133, Est GFR (MDRD) Non-Af 110, BUN/Creatinine Ratio 17.7, Glucose 100, Calcium 9.1, Total Bilirubin 0.80, AST 17, ALT 23, Alkaline Phosphatase 65, Total Protein 7.5, Albumin 4.1, Globulin 3.4, Albumin/Globulin Ratio 1.2, Lipase 129 09/17/21 23:08: Lactic Acid 0.7 09/18/21 05:05: WBC 9.1, RBC 4.38 L, Hgb 12.6 L, Hct 38.0 L, MCV 86.8, MCH 28.8, MCHC 33.2, RDW Std Deviation 40.5, RDW Coeff of Bart 12.8, Plt Count 242, MPV 8.5, Immature Gran % (Auto) 0.400, Neut % (Auto) 70.6 H, Lymph % (Auto) 14.8 L, [place] % (Auto) 12.9 H, Eos % (Auto) 0.9, Baso % (Auto) 0.4, Absolute Neuts (auto) 6.4, Absolute Lymphs (auto) 1.34, Nucleated RBC % 0 09/18/21 05:05: Sodium 139, Potassium 3.3 L, Chloride 107, Carbon Dioxide 25.0, Anion Gap 7, BUN 14, Creatinine 0.84, Estim Creat Clear Calc 141.22, Est GFR (MDRD) Af Amer 145, Est GFR (MDRD) Non-Af 120, BUN/Creatinine Ratio 16.6, Glucose 95, Calcium 8.9 Microbiology: Microbiology 09/18/21 02:11 Nasal Secretion SARS-CoV-2 Antigen (Rapid) - Final Radiography Diagnostic Testing: Radiology Impression Abdomen/Pelvis CT 09/17/21 21:44 IMPRESSION: Mildly distended small bowel loops with air-fluid levels consistent with small bowel obstruction. Mild hazy associated vasculature concerning for early vascular congestion. Surgical consultation is recommended. Electronically Signed: Brennen Dougherty DO at 22:58 EST Tel , Service support , ADDENDUM: 09/18/21 0026 IMPRESSION: Mildly distended small bowel loops with air-fluid levels consistent with small bowel obstruction. Mild hazy associated vasculature concerning for early vascular congestion. Surgical consultation is recommended. N.B. : The above Results were Read Back by Brennen Dougherty DO to Asim Mcghee MD, and understanding confirmed on 09/18/2021 00:19:23 (ET). Electronically Signed: Brennen Dougherty DO at 22:58 EST Tel , Service support , Abdomen/Pelvis CT 09/17/21 23:05 IMPRESSION: Again noted mildly distended, stacked distal ileal bowel loops with air-fluid levels. Small amount of fluid seen between stacked bowel loops, best appreciated on coronal images. There is also mild mesenteric vascular congestion. No mesenteric lymphadenopathy. Electronically Signed: Brennen RamirezDO carmita at 1:53 EST Tel , Service support , KUB X-Ray 09/18/21 05:55 IMPRESSION: Multiple dilated loops of small bowel measuring up to 3.9 cm. Findings consistent with the recent CT findings. at 0753 Reported and signed by: Andrew Wilde MD Electronically Signed: Andrew Wilde MD at 7:52 EST Tel , Service support , D/C Instructions Discharge Diet: Light diet - advance as tolerated Discharge Activity: Return to Normal Activity Weight Bearing Status: Weight bearing as tolerated Call your doctor if you observe: Uncontrolled pain Please Follow Up With: Aquiles Del Valle MD When: as needed [phone]. Return to ED if you develop any increasing pain or vomiting. Meaningful Use Info Meaningful Use Diagnoses (Choose all that apply): None applicable Discharge Plan Admission Admit Date/Time: 09/18/21 02:40 Attending Provider: Aquiles Del Valle Primary Care Provider: Care Physician,No Primary Discharge Orders/Prescriptions Prescriptions: Discontinued ondansetron 4 mg tablet,disintegrating 4 mg PO Q8H PRN (Reason: nausea and vomiting) Qty: 10 RF: 0 dicyclomine 20 mg tablet 20 mg PO TID PRN (Reason: cramping) Qty: 10 RF: 0 Referrals / Follow Up: Marilyn Reveles MD [STAFF PHYSICIAN] - 3-5 Days if not improving Care Physician,No Primary [Primary Care Provider] - Disposition Disposition (needs filled in before D/C Order can be placed): Home, Self Care
[2021-09-18 17:46] VITALS: BP 116/70; PULSE 59; RESP 14; TEMP 36.6; O2SAT 100
== END 2021-09-18 17:57 | disposition home or self-care (01) ==
LOC: ED 23:14 → MS3 09-18 02:56
PROVIDERS: Emergency Medicine; Admitting Provider Surgery; Emergency Provider Emergency Medicine; Visit Provider Surgery
DX: K56.609 Unspecified intestinal obstruction, unspecified as to partial versus complete obstruction (principal); J45.909 Unspecified asthma, uncomplicated; F17.210 Nicotine dependence, cigarettes, uncomplicated; E87.6 Hypokalemia
CPT/HCPCS: 36415; 74018; 74176; 74177; 80048; 80053; 83605; 83690; 85025; 87426; 96361; 96365; 96372; 96375; 96376; 97802; 99218; 99285; 99406; J7030; Q9967; A4216; G0378; J2405

== ENCOUNTER 2021-10-17 15:57 | Emergency (ER) | payer MEDICAID, SELFPAY ==
[2021-10-17 15:59] VITALS: BP 131/93; PULSE 89; RESP 16; TEMP 36.6; BMI 26.3
--- NOTE | 2021-10-17 17:20 | EDS_ITS ---
HPI HPI - GI History of Present Illness Chief Complaint: Abd Pain Informant: patient Abdominal Pain/Flank Pain Onset: Days Context: Gradual Onset Timing: Intermittent Location: Diffuse Current Severity: Mild Maximum Severity: Mild Relieved by: Nothing Nausea/Vomiting/Emesis GI Symptom: Negative for Nausea and Vomiting Diarrhea/Melena/Hematochezia GI Symptom: Positive for Diarrhea; Negative for Melena and Hematochezia Onset: Today Stool Quality: Positive for Loose Severity: Mild Associated Symptoms Associated Symptoms: Negative for Dysuria, Frequency, Hematuria and Urgency Narrative Narrative: 1-year-old male recent admission for small bowel obstruction. He did not need surgery. Spontaneously resolved. States the last 3 to 4 days has had some epigastric discomfort. Worse supine. No history of reflux. No prior abdominal surgeries. She is currently is about a 2 out of 10. Its worse at night. He denies nausea or vomiting. He has had slightly decreased appetite. He denies any right lower quadrant pain. He denies any dysuria. And today had some mild loose stools but no melena. He denies any fever. Prior similar symptoms: No Recent Illness/Hospitalization: Yes PFSH PFS Medical History Anxiety Asthma Depression Substance abuse Home Medications pantoprazole [Protonix] 40 mg PO DAILY #20 tab 10/17/21 [Rx Last Taken Unknown] Allergy/AdvReac Type Severity Reaction Status Date / Time No Known Allergies Allergy Verified 10/17/21 16:02 Surgical History History of adenoidectomy Social History Smoking Status: Current every day smoker tobacco type: e-cigarettes ROS ROS ED ROS Narrative Abdominal pain. Loose stools. Review of Systems ROS Unobtainable: Denies due to encephalopathy Constitutional Constitutional ED: Denies fever(s) ENT ENT ED: Denies ear pain Cardiovascular Cardiovascular: Denies chest pain or palpitations Respiratory/Chest Respiratory/Chest: Denies cough or dyspnea Gastrointestinal Gastrointestinal: Reports abdominal pain and diarrhea; Denies nausea or vomiting Genitourinary Genitourinary ED: Denies dysuria Musculoskeletal Musculoskeletal: Denies myalgias Integumentary Denies rash Neurologic Neurologic: Denies headache(s) Psychiatric Psychiatric: Denies depression Endocrine Endocrinology: Denies polyuria Hematologic/Lymphatic Hematologic/Lymphatic: Denies easy bruising EXAM Physical Exam Narrative Exam Narrative: 10-year-old male no acute distress vital signs stable afebrile. HEENT exam unremarkable. Moist. Lungs are clear. Heart regular rhythm rate about 90 no murmur. Abdomen soft nondistended normal bowel sounds no peritoneal signs. No signs of obstruction. No hernia or mass. No signs of trauma. Both right upper and right lower quadrant unremarkable. Moving all 4 extremities. No edema. Back nontender. Neurologic exam normal. Const Vital Signs: 10/17/21 15:59 Temperature 97.8 F Temperature Source Temporal Pulse Rate 89 Respiratory Rate 16 Blood Pressure 131/93 H Blood Pressure Mean 105 Positive well nourished and well developed; Negative for obese, cachectic, contractures or unkempt General Appearance ED: well developed and NAD; Negative for unkempt, cachectic, contractures or pallor Nutritional Appearance: Negative for cachectic or obese HEENT Reports moist mucous membranes normocephalic and atraumatic Eyes PERRL and EOMs intact bilaterally Neck no lymphadenopathy, supple and no JVD General: Negative for tenderness Resp normal respiratory effort and clear to auscultation bilaterally Auscultation: Negative for rales, rhonchi or wheezes Cardio regular rate, regular rhythm, S1 normal heart sound, S2 normal heart sound and no murmurs GI non-tender, non-distended and no masses Auscultation: normoactive bowel sounds Palpation: soft; Negative for tender, guarding or rigid Back/Spine no CVA tenderness General Back: Negative for CVA tenderness Extremity full ROM General Extremety ED: Negative for edema or tenderness General Extremity: Negative for edema Neuro moves all extremities Sensorium / Orientation: alert, oriented to person, oriented to place and oriented to time; Negative for orientation impaired, confused, lethargic or stuporous Motor Exam: strength 5/5 throughout Psych mental status grossly normal and thought process normal Appearance: Negative for unkempt Skin no wounds General Skin Exam: Negative for jaundice or pallor Lesions: no lesions Rashes: no rashes MDM MDM MDM Narrative Medical decision making narrative: 20-year-old male complaining of abdominal discomfort. He is small bowel obstruction several weeks ago. His exam is benign. Screening labs are being obtained. At this time I do not think he needs any imaging. He will be given a GI cocktail and Protonix because it sounds like reflux. Its worse supine. Is worse at night when he is lying down. Repeat exam at 8 PM patient is doing well. Abdomen is benign. We discussed all his test results which were unremarkable. He is completely nontender. We went over all his lab results. He will be discharged to home with a prescription of Protonix and outpatient follow-up. Lab Data Attestation: I reviewed the patient's lab results. Lab results narrative: CBC shows a white count of 3. Hemoglobin 14 and hematocrit 41. Electrolytes potassium at 3.1 gap is 6 normal BUN and creatinine of 12 and 1. Liver enzymes are normal. Lipase is normal at 72. Labs: Laboratory Results - last 24 hr 10/17/21 10/17/21 17:25 17:25 WBC 3.5 L RBC 4.93 Hgb 14.3 Hct 41.8 MCV 84.8 MCH 29.0 MCHC 34.2 RDW Std Deviation 39.8 RDW Coeff of Bart 12.8 Plt Count 202 MPV 8.5 Immature Gran % (Auto) 0.000 Neut % (Auto) 35.8 L Lymph % (Auto) 39.7 [place] % (Auto) 22.9 H Eos % (Auto) 0.8 Baso % (Auto) 0.8 Absolute Neuts (auto) 1.3 L Absolute Lymphs (auto) 1.40 Nucleated RBC % 0 Sodium 139 Potassium 3.1 L Chloride 106 Carbon Dioxide 27.0 Anion Gap 6 BUN 12 Creatinine 1.03 Estim Creat Clear Calc 118.80 Est GFR (MDRD) Af Amer 114 Est GFR (MDRD) Non-Af 95 BUN/Creatinine Ratio 11.7 Glucose 85 Calcium 9.1 Total Bilirubin 0.40 AST 14 L ALT 18 Alkaline Phosphatase 66 Total Protein 7.9 Albumin 4.2 Globulin 3.7 Albumin/Globulin Ratio 1.1 Lipase 72 L Discharge Plan Triage Chief Complaint: Abd Pain ED Provider: Mario Garcia Dx/Rx/DC Orders Clinical Impression: Abdominal pain, Gastro-esophageal reflux Instructions: Abdominal Pain, ED GERD (Adult) Prescriptions: New pantoprazole [Protonix] 40 mg tablet,delayed release (DR/EC) 40 mg PO DAILY Qty: 20 RF: 0 Primary Care Provider: Care Physician,No Primary Referrals: Elpidio Obrien MD [STAFF PHYSICIAN] - 1 Week if not improving Care Physician,No Primary [Primary Care Provider] - Activity Restrictions/Additional Instructions: Location which is Protonix. It should help you if you have indigestion or reflux symptoms. Take it once a day. If it is helping you you can get a refill of the medication. Follow-up with a local primary care physician. Disposition Disposition: Home, Self Care
[2021-10-17] MEDS: Pantoprazole Sodium 40 MG Tablet PO (17:25)
[2021-10-17] MEDS: Mag Hydrox/Al Hydrox/Simeth 30 ML UDC PO (17:26)
[2021-10-17 17:34] LABS: Absolute Neutrophil Count 1.3 X10^3/uL (2.0-7.7); Basophil# 0.03 X10^3/uL; Basophil% 0.8 % (0-1); Eosinophil# 0.03 X10^3/uL; Eosinophils% 0.8 % (0-5); Hematocrit 41.8 % (40-54); Hemoglobin 14.3 g/dL (13.0-16.5); Lymphocyte % 39.7 % (19-41); Mean Corp Hgb Conc 34.2 g/dL (32-36); Mean Corpuscular Volume 84.8 fL (80-94); Mean Platelet Vol. 8.5 fl (6.2-12.0); Monocyte# 0.81 X10^3/uL; Monocyte% 22.9 % (0-10); NRBC Flagged by Analyzer 0 % (0-5); Neutrophil # 1.26 X10^3/uL (2.7-7.7); Neutrophil % 35.8 % (47-70); Platelet Count 202 K/mm3 (150-450); RBC Distribution Width CV 12.8 % (11.6-14.6); RBC Distribution Width SD 39.8 fl (35.1-43.9); Red Blood Count 4.93 M/mm3 (4.6-6.2); White Blood Count 3.5 K/mm3 (4.4-11.0)
[2021-10-17 17:53] LABS: ALB/GLOB Ratio 1.1 RATIO (0.9-2.4); AST(SGOT) 14 U/L (15-37); Alanine Aminotransfer ALT/SGPT 18 U/L (16-61); Albumin, Serum 4.2 g/dL (3.2-5.0); Alkaline Phosphatase 66 U/L (45-117); Anion Gap 6 (5-15); BUN 12 mg/dL (7-18); BUN/Creat Ratio 11.7 RATIO (10-20); Calcium,Total 9.1 mg/dL (8.5-10.1); Chloride 106 mmol/L (98-107); Creatinine, Serum 1.03 mg/dL (0.70-1.30); EST Glomerular Filtration Rate 95 mL/min (>60); Est Glom Filt Rate - Afr Amer 114 mL/min (>60); Globulin 3.7 g/dL (2.2-4.2); Glucose 85 mg/dL (74-106); Lipase 72 U/L (73-393); Potassium 3.1 mmol/L (3.5-5.1); Protein, Total 7.9 g/dL (6.4-8.2); Sodium Level 139 mmol/L (136-145)
[2021-10-17 20:11] VITALS: BP 121/79; PULSE 69; RESP 14; O2SAT 97
== END 2021-10-17 20:12 | disposition home or self-care (01) ==
PROVIDERS: Emergency Provider Emergency Medicine; Visit Provider Emergency Medicine
DX: R10.9 Unspecified abdominal pain (principal); K21.9 Gastro-esophageal reflux disease without esophagitis; F17.290 Nicotine dependence, other tobacco product, uncomplicated; R19.7 Diarrhea, unspecified
CPT/HCPCS: 80053; 83690; 85025; 99283; A4216

== ENCOUNTER 2022-01-20 20:29 | Emergency (ER) | payer MEDICAID, SELFPAY ==
[2022-01-20 20:30] VITALS: BP 133/82; PULSE 110; RESP 18; TEMP 36.1; O2SAT 98; BMI 25.8
--- NOTE | 2022-01-20 20:47 | EDS_ITS ---
HPI HPI - URI History of Present Illness Chief Complaint: Cold Sx Detail of Chief Complaint: URI symptoms x3 days. Informant: patient Onset/Context/Timing Onset: Days Context: Gradual Onset Timing: Continuous Current Severity: Mild Maximum Severity: Mild Associated Symptoms Associated Symptoms: Positive for Nasal Congestion, Myalgias, Diarrhea and Nonproductive cough Narrative Narrative: 21-year-old male nursing and past medical history. Currently on no medications. States 3 days ago began with a sore throat nonproductive cough and runny nose. The first day he had diarrhea that since resolved. No vomiting. No fever. No trouble breathing. Prior similar symptoms: Yes Recent Illness/Hospitalization: No ROS ROS ED ROS Narrative Cough, sore throat, right earache and diarrhea. Review of Systems ROS Unobtainable: Denies due to encephalopathy Constitutional Constitutional ED: Reports chills; Denies fever(s) or subjective Eyes Eyes: Denies change in vision ENT ENT ED: Reports ear pain, rhinorrhea and sore throat Cardiovascular Cardiovascular: Denies chest pain Respiratory/Chest Respiratory/Chest: Reports cough; Denies dyspnea Gastrointestinal Gastrointestinal: Reports diarrhea; Denies abdominal pain, nausea or vomiting Genitourinary Genitourinary ED: Denies dysuria Musculoskeletal Musculoskeletal: Denies myalgias Integumentary Denies rash Neurologic Neurologic: Denies headache(s) Psychiatric Psychiatric: Denies depression Endocrine Endocrinology: Denies polyuria Hematologic/Lymphatic Hematologic/Lymphatic: Denies easy bruising Allergic/Immunologic Allergic/Immunologic ED: Denies urticaria PFSH PFSH Medical History Anxiety Asthma Depression Substance abuse Home Medications NK 01/20/22 [History Last Taken Unknown] Allergy/AdvReac Type Severity Reaction Status Date / Time No Known Allergies Allergy Verified 01/20/22 20:32 Surgical History History of adenoidectomy Social History Smoking Status: Current every day smoker tobacco type: cigarettes and e- cigarettes EXAM Physical Exam Narrative Exam Narrative: -year-old male no acute distress vital signs stable afebrile. Pulse ox 90% on room air no signs hypoxia. H EENT exam right TM minimally erythematous. Left normal. Posterior pharynx mild redness. Minimal swelling. No exudate. No abscess. No trouble swallowing or breathing. No stridor or desiree oling. Neck nontender no lymphadenopathy. Lungs are clear equal symmetrical bilaterally. Heart regular rhythm no murmur. Abdomen soft nontender. Patient moving all 4 extremities. Nontender no edema. Neurologically is awake and alert with no focal motor deficits. Const Vital Signs: 01/20/22 20:30 01/20/22 20:53 Temperature 96.9 F L Temperature Source Temporal Pulse Rate 110 H Respiratory Rate 18 Respiratory Effort Normal Non-Labored Respiratory Pattern Normal Blood Pressure 133/82 H Blood Pressure Mean 99 Pulse Ox 98 Oxygen Delivery Method Room Air Positive well nourished and well developed; Negative for obese, cachectic or contractures General Appearance ED: well developed and NAD; Negative for cachectic, contractures, cyanotic, diaphoretic or pallor Nutritional Appearance: Negative for cachectic or obese HEENT Reports moist mucous membranes; Denies dry mucous membranes normocephalic and atraumatic Face and Sinus: Negative for sinus tenderness External Ear: external ears normal and no preauricular adenopathy; Negative for preauricular adenopathy External Auditory Canal: EAC's normal Tympanic Membrane ED: Yes TM normal on the left and TM abnormal erythematous Mouth ED: No dry mucous membranes Mouth: No dry mucous membranes Teeth and Gingiva: Negative for caries Throat: posterior oropharynx abnormal; Negative for posterior oropharynx normal Eyes PERRL and EOMs intact bilaterally Neck no lymphadenopathy, supple, no meningeal signs and no JVD General: Negative for anterior neck swelling or lymphadenopathy Resp normal respiratory effort and clear to auscultation bilaterally Auscultation: Negative for rales, rhonchi or wheezes Cardio S1 normal heart sound, S2 normal heart sound and no murmurs Rate: regular rate Rhythm: regular rhythm GI non-tender, non-distended and no masses Inspection: Negative for abdominal distention Auscultation: normoactive bowel sounds Palpation: soft; Negative for tender or guarding Back/Spine no CVA tenderness and normal ROM General Back: Negative for CVA tenderness Cervical Spine: Negative for cervical spine tenderness Thoracic Spine / Upper Back: Negative for thoracic spinal tenderness Extremity normal to inspection and full ROM General Extremety ED: Negative for cyanosis or tenderness General Extremity: Negative for cyanosis Neuro oriented x3 Sensorium / Orientation: alert, oriented to person, oriented to place and oriented to time Motor Exam: strength 5/5 throughout Psych mental status grossly normal Mood & Affect: Negative for depressed or tearful Skin General Skin Exam: Negative for jaundice or pallor Lesions: no lesions Rashes: no rashes MDM MDM MDM Narrative Medical decision making narrative: 21-year-old male URI symptoms I suspect this is a virus. Rapid strep and COVID test being obtained per the patient's request. He does not need any x-rays I do not hear pneumonia. Repeat exam patient doing well at 935. We went over his negative test results. He will be discharged to home. Lab Data Attestation: I reviewed the patient's lab results. Lab results narrative: Rapid strep test is negative. Rapid COVID antigen test negative. Discharge Plan Triage Chief Complaint: Cold Sx ED Provider: Mario Garcia Dx/Rx/DC Orders Clinical Impression: Viral URI with cough Instructions: ED URI, Viral, No Abx (Adult) Prescriptions: No Action NK RF: 0 Primary Care Provider: Care Physician,No Primary Referrals: Elpidio Obrien MD [STAFF PHYSICIAN] - 1 Week if not improving Care Physician,No Primary [Primary Care Provider] - Activity Restrictions/Additional Instructions: Plenty of fluids and rest. Warm salt water gargling. Motrin and Tylenol for pain. Follow-up if not improving. Disposition Disposition: Home, Self Care
--- NOTE | 2022-01-20 21:10 | CM.ED ---
SW Note Referral Source: Case Find Referral Reason: No PCP SW noted that patient had no PCP. SW provided patient with [facility] Healthcare Provider Directory. SW encouraged patient to secure a PCP. No other issues or concerns voiced. SW remains available if needs arise. Plan: Resource provided [facility]
== END 2022-01-20 21:44 | disposition home or self-care (01) ==
PROVIDERS: Emergency Provider Emergency Medicine; Visit Provider Emergency Medicine
DX: J06.9 Acute upper respiratory infection, unspecified (principal); F17.210 Nicotine dependence, cigarettes, uncomplicated; J45.909 Unspecified asthma, uncomplicated; F17.290 Nicotine dependence, other tobacco product, uncomplicated
CPT/HCPCS: 87811; 87880; 99282

== ENCOUNTER 2022-06-20 06:40 | Emergency (ER) | payer MEDICAID, SELFPAY ==
[2022-06-20 06:41] VITALS: BP 110/65; PULSE 76; RESP 16; TEMP 36.8; O2SAT 99; BMI 23.8
--- NOTE | 2022-06-20 06:57 | EDS_ITS ---
HPI History of Present Illness Chief Complaint: General Illness Narrative Narrative: 22-year-old male presenting with fever, chills, body aches, mild cough for the last 48 hours. No chest pain. At times he feels a little bit dyspneic. Patient states that he did not want to go to work today because he felt ill. He has not done [id number] test for COVID-19. No known sick contacts.He does not have any nausea or vomiting. PFSH PFS Medical History Anxiety Asthma Depression Substance abuse Home Medications ondansetron 4 mg disintegrating tablet 4 mg PO Q8H PRN nausea and vomiting #10 tabs 06/20/22 [Rx Last Taken Unknown] Allergy/AdvReac Type Severity Reaction Status Date / Time No Known Allergies Allergy Verified 06/20/22 06:45 Surgical History History of adenoidectomy Social History Smoking Status: Current every day smoker tobacco type: cigarettes and e- cigarettes ROS ROS ED Constitutional Constitutional ED: Reports chills and fever(s) Eyes Eyes: Denies change in vision or diplopia ENT ENT ED: Reports rhinorrhea and sore throat Cardiovascular Cardiovascular: Denies chest pain or palpitations Respiratory/Chest Respiratory/Chest: Reports cough and dyspnea; Denies dyspnea on exertion Gastrointestinal Gastrointestinal: Denies abdominal pain, constipation, nausea or vomiting Genitourinary Genitourinary ED: Denies dysuria or hematuria Musculoskeletal Musculoskeletal: Reports myalgias; Denies arthralgias Integumentary Denies abscess or Abrasions Neurologic Neurologic: Reports headache(s); Denies paresthesias or weakness Psychiatric Psychiatric: Denies anxiety or depression EXAM Physical Exam Const Vital Signs: 06/20/22 06:41 Temperature 98.3 F Temperature Source Temporal Pulse Rate 76 Respiratory Rate 66 H Blood Pressure 110/65 Blood Pressure Mean 80 Pulse Ox 99 Oxygen Delivery Method Room Air Positive well nourished General Appearance ED: NAD; Negative for pallor HEENT Reports moist mucous membranes Eyes PERRL and EOMs intact bilaterally Resp normal respiratory effort and clear to auscultation bilaterally Auscultation: Negative for rales, rhonchi or wheezes Cardio Negative for regular rate or regular rhythm GI normal to inspection, nondistended, normoactive bowel sounds Extremity normal to inspection Neuro oriented x3 and CN's II-XII intact bilaterally Sensorium / Orientation: alert Psych mental status grossly normal Skin no rashes or lesions noted and no wounds General Skin Exam: Negative for jaundice or pallor MDM MDM MDM Narrative Medical decision making narrative: 22-year-old male presenting with viral symptoms. I suspect this is COVID-19. Patient does not have any red flag signs or symptoms. His vital signs are completely normal. Heart rate 70, temperature 98.3, O2 sats 99% on room air. Blood pressure 110/65. Patient's respiratory rate was initially documented at 66 but this is an error. His respirate is 16 in the room. He is nontoxic- appearing. He wants to be tested for COVID-19. He states he will quarantine at home and wait for his results. He was given a work note. He was given a prescription for Zofran if he should need it. Patient discharged in stable condition. Impression: 1. COVID-19 Lab Data Attestation: I reviewed the patient's lab results. Discharge Plan Triage Chief Complaint: General Illness ED Provider: Manolo Diane Dx/Rx/DC Orders Instructions: Coronavirus Disease 2019 (COVID-19): Caring for Yourself or Others Prescriptions: New ondansetron 4 mg tablet,disintegrating 4 mg PO Q8H PRN (Reason: nausea and vomiting) Qty: 10 0RF Stand Alone Forms: ED Work / School Excuse Primary Care Provider: Care Physician,No Primary Referrals: Ferdinand Michel MD [Med Staff - Memory Care Director] - 3-5 Days if not improving Care Physician,No Primary [Primary Care Provider] - Disposition Disposition: Home, Self Care
== END 2022-06-20 07:29 | disposition home or self-care (01) ==
LOC: ED 07:20
PROVIDERS: Emergency Provider Student in an Organized Health Care Education/Training Program; PCP Family Medicine; Visit Provider Student in an Organized Health Care Education/Training Program
DX: U07.1 COVID-19 (principal); F17.210 Nicotine dependence, cigarettes, uncomplicated; J45.909 Unspecified asthma, uncomplicated; F17.290 Nicotine dependence, other tobacco product, uncomplicated
CPT/HCPCS: 87811; 99282

== ENCOUNTER 2022-08-30 11:10 | Emergency (ER) | payer MEDICAID, SELFPAY ==
[2022-08-30 11:12] VITALS: BP 133/86; PULSE 73; RESP 16; TEMP 35.8; O2SAT 100; BMI 22.3
--- NOTE | 2022-08-30 12:11 | EX.ED.DYSGE1 ---
HPI History of Present Illness Chief Complaint: Nausea/Vomiting/Diarrhea Informant: patient and spouse/S.O. Narrative Narrative: 22-year-old male presented to the emergency room with vomiting and diarrhea. Patient states that he began to feel ill at approximately 0300 hrs. today. He notes multiple episodes of vomiting and diarrhea. He states he is unable to keep anything down. No fevers but he has felt chilled. No bleeding. His significant other notes that she had the similar thing last week but it only lasted a small amount of time. He denies any cough or URI symptoms. [facility] Medical History Anxiety Asthma Depression Substance abuse Home Medications ondansetron 4 mg disintegrating tablet 4 mg PO Q8H PRN nausea and vomiting #10 tabs 06/20/22 [Rx Last Taken Unknown] Allergy/AdvReac Type Severity Reaction Status Date / Time No Known Allergies Allergy Verified 08/30/22 11:11 Surgical History History of adenoidectomy Social History Smoking Status: Current every day smoker tobacco type: cigarettes and e-cigarettes ROS ROS ED Constitutional Constitutional ED: Denies chills or weight loss Eyes Eyes: Denies change in vision or diplopia ENT ENT ED: Denies ear pain, rhinorrhea or sore throat Cardiovascular Cardiovascular: Denies chest pain, orthopnea, palpitations or racing heartbeat Respiratory/Chest Respiratory/Chest: Denies cough, dyspnea or orthopnea Gastrointestinal Gastrointestinal: Reports diarrhea, nausea, vomiting and other Details: Abdominal cramping ; Denies abdominal pain Genitourinary Genitourinary ED: Denies dysuria, hematuria or urinary frequency Musculoskeletal Musculoskeletal: Denies arthralgias or myalgias Integumentary Denies abscess or rash Neurologic Neurologic: Denies headache(s) or weakness Psychiatric Psychiatric: Denies anxiety, depression, suicidal ideation or suicidal thoughts Endocrine Endocrinology: Denies polydipsia, polyphagia or polyuria Allergic/Immunologic Allergic/Immunologic ED: Denies mouth swelling, tongue swelling or urticaria EXAM Physical Exam Const Vital Signs: 08/30/22 11:12 08/30/22 14:11 Temperature 96.4 F L Temperature Source Temporal Pulse Rate 73 71 Respiratory Rate 16 16 Blood Pressure 133/86 H 116/61 Blood Pressure Mean 101 79 Pulse Ox 100 97 Oxygen Delivery Method Room Air Room Air Positive well nourished and well developed General Appearance ED: well developed HEENT Reports normocephalic, head/scalp atraumatic and moist mucous membranes Eyes PERRL and EOMs intact bilaterally Neck no lymphadenopathy, supple and no JVD Resp normal respiratory effort and clear to auscultation bilaterally Cardio regular rate, regular rhythm and no murmurs GI normal to inspection, nondistended, normoactive bowel sounds and non-tender Palpation: soft Back/Spine no CVA tenderness and normal ROM Extremity normal to inspection General Extremety ED: Negative for edema General Extremity: Negative for edema Neuro oriented x3 and CN's II-XII intact bilaterally Sensorium / Orientation: alert Motor Exam: strength 5/5 throughout Psych mental status grossly normal Mood & Affect: Negative for depressed or tearful Skin no rashes or lesions noted and no wounds MDM MDM MDM Narrative Medical decision making narrative: WhitePatient received IV fluids Toradol Bentyl and Zofran. Is elevated at 13.4. CMP is otherwise negative. CT of the ab pelvis is negative. Patient is tolerating fluids. He is feeling better. I will write for Zofran and have him follow-up as needed return if worsening or concerns Lab Data Labs: Laboratory Results - last 24 hr 08/30/22 08/30/22 12:15 12:15 WBC 13.4 H RBC 5.08 Hgb 15.1 Hct 44.5 MCV 87.6 MCH 29.7 MCHC 33.9 RDW Std Deviation 43.0 RDW Coeff of Bart 13.3 Plt Count 241 MPV 8.2 Immature Gran % (Auto) 0.300 Neut % (Auto) 89.1 H Lymph % (Auto) 4.5 L [place] % (Auto) 5.3 Eos % (Auto) 0.4 Baso % (Auto) 0.4 Absolute Neuts (auto) 12.0 H Absolute Lymphs (auto) 0.60 L Nucleated RBC % 0 Differential Comment COMMENT Sodium 140 Potassium 3.9 Chloride 111 H Carbon Dioxide 25.0 Anion Gap 4 L BUN 21 H Creatinine 0.92 Estim Creat Clear Calc 127.09 Est GFR (MDRD) Af Amer 130 Est GFR (MDRD) Non-Af 107 BUN/Creatinine Ratio 22.9 H Glucose 115 H Calcium 9.0 Total Bilirubin 0.80 AST 16 ALT 27 Alkaline Phosphatase 60 Total Protein 7.9 Albumin 4.4 Globulin 3.5 Albumin/Globulin Ratio 1.3 Radiography Diagnostic Testing: Clinical Impression(s) from Imaging Studies Abdomen/Pelvis CT 08/30/22 14:45 IMPRESSION: No acute abdominal or pelvic abnormality. Electronically Signed: Nav Telles MD at 15:46 EST , Discharge Plan Triage Chief Complaint: Nausea/Vomiting/Diarrhea ED Provider: Jan Lin Dx/Rx/DC Orders Prescriptions: No Action ondansetron 4 mg tablet,disintegrating 4 mg PO Q8H PRN (Reason: nausea and vomiting) Qty: 10 0RF Primary Care Provider: Anel Andersen Referrals: Ferdinand Michel MD [Med Staff - Aircraft Load Controller] -
[2022-08-30] MEDS: Ondansetron 4 MG/2 ML Vial IV (12:13)
[2022-08-30] MEDS: 0.9% Normal Saline 1,000 ML 1000 ML IV (12:14)
[2022-08-30] MEDS: Dicyclomine 20 MG/2 ML Vial IM (12:42)
[2022-08-30] MEDS: Ketorolac 30 MG/ML Syringe IV (14:09)
[2022-08-30 14:11] VITALS: BP 116/61; PULSE 71; RESP 16; O2SAT 97
[2022-08-30 14:21] LABS: Basophil# 0.05 X10^3/uL; Basophil% 0.4 % (0-1); Eosinophil# 0.05 X10^3/uL; Eosinophils% 0.4 % (0-5); Hematocrit 44.5 % (40-54); Hemoglobin 15.1 g/dL (13.0-16.5); Lymphocyte % 4.5 % (19-41); Mean Corp Hgb Conc 33.9 g/dL (32-36); Mean Corpuscular Hgb 29.7 pg (27.0-32.0); Mean Corpuscular Volume 87.6 fL (80-94); Mean Platelet Vol. 8.2 fl (6.2-12.0); Monocyte# 0.71 X10^3/uL; Monocyte% 5.3 % (0-10); NRBC Flagged by Analyzer 0 % (0-5); Neutrophil # 11.97 X10^3/uL (2.7-7.7); Neutrophil % 89.1 % (47-70); POSITIVE DIFFERENTIAL YES; Platelet Count 241 K/mm3 (150-450); RBC Distribution Width CV 13.3 % (11.6-14.6); Red Blood Count 5.08 M/mm3 (4.6-6.2); White Blood Count 13.4 K/mm3 (4.4-11.0)
[2022-08-30 14:22] LABS: Differential Indicated SCAN CRITERIA MET
[2022-08-30 14:38] LABS: ALB/GLOB Ratio 1.3 RATIO (0.9-2.4); AST(SGOT) 16 U/L (15-37); Alanine Aminotransfer ALT/SGPT 27 U/L (16-61); Albumin, Serum 4.4 g/dL (3.2-5.0); Alkaline Phosphatase 60 U/L (45-117); Anion Gap 4 (5-15); BUN 21 mg/dL (7-18); BUN/Creat Ratio 22.9 RATIO (10-20); Chloride 111 mmol/L (98-107); Creatinine, Serum 0.92 mg/dL (0.70-1.30); EST Glomerular Filtration Rate 107 mL/min (>60); Est Glom Filt Rate - Afr Amer 130 mL/min (>60); Estimated Creatinine Clearance 127.09 ml/min; Globulin 3.5 g/dL (2.2-4.2); Glucose 115 mg/dL (74-106); Potassium 3.9 mmol/L (3.5-5.1); Protein, Total 7.9 g/dL (6.4-8.2); Sodium Level 140 mmol/L (136-145)
--- NOTE | 2022-08-30 14:45 | CT_ITS ---
EXAM: CT ABDOMEN AND PELVIS WITH INTRAVENOUS CONTRAST CLINICAL INDICATION: abdominal pain TECHNIQUE: Helically acquired images were obtained of the abdomen and pelvis with intravenous contrast. This CT exam was performed using one or more of the following dose reduction techniques: automated exposure control, adjustment of the mA and/or kV according to patient size, and/or use of iterative reconstruction technique. This report was created using [employer] report generation technology. CONTRAST: IV 100mL Isovue-300 COMPARISON: CT Abdomen Pelvis dated 09/18/2021 FINDINGS: LOWER THORAX: Normal. Lung bases are clear. No cardiomegaly. No pericardial effusion. ABDOMEN: LIVER: Normal. Homogeneous. No focal mass. GALLBLADDER AND BILE DUCTS: Normal. No calcified gallstones. No gallbladder distention or wall edema. No intra- or extrahepatic biliary ductal dilation. PANCREAS: Normal. No focal cystic or solid mass. SPLEEN: Normal. Normal size without focal cystic or solid mass. ADRENALS: Normal. No nodules. KIDNEYS AND URETERS: Normal. Normal renal size and position. No hydronephrosis. STOMACH AND BOWEL: Normal. No bowel distention. No focal inflammatory change. PELVIS: APPENDIX: Appendix is visualized and normal in appearance. BLADDER: Normal. REPRODUCTIVE: Unremarkable as visualized. No mass. ABDOMEN and PELVIS: INTRAPERITONEAL SPACE: Normal. No ascites or other fluid collection. No free air. BONES/JOINTS: Normal. No suspicious lytic or blastic abnormality. SOFT TISSUES: Normal. No discrete abdominal or pelvic wall hernia. VASCULATURE: Normal. Abdominal aorta is non-dilated. LYMPH NODES: Normal. No enlarged lymph nodes. CT/Abdomen/Pelvis W IV Cont ONLY IMPRESSION: No acute abdominal or pelvic abnormality. Electronically Signed: Nav Telles MD at 15:46 EST ,
[2022-08-30 16:06] VITALS: BP 128/69; PULSE 70; RESP 18; O2SAT 98
== END 2022-08-30 16:07 | disposition home or self-care (01) ==
PROVIDERS: Emergency Provider Emergency Medicine; PCP Pediatrics; Visit Provider Emergency Medicine
DX: R11.2 Nausea with vomiting, unspecified (principal); R19.7 Diarrhea, unspecified; F17.210 Nicotine dependence, cigarettes, uncomplicated; J45.909 Unspecified asthma, uncomplicated; F17.290 Nicotine dependence, other tobacco product, uncomplicated
CPT/HCPCS: 74177; 80053; 85025; 96361; 96372; 96374; 96375; 99283; J7030; Q9967; A4216; J2405

== ENCOUNTER 2022-10-16 11:38 | Emergency (ER) | payer MEDICAID, SELFPAY ==
[2022-10-16 11:39] VITALS: BP 126/71; PULSE 93; RESP 16; TEMP 36.4; O2SAT 100; BMI 18.9
--- NOTE | 2022-10-16 12:15 | EX.ED.VIS.PS ---
HPI HPI - Psych History of Present Illness Chief Complaint: Suicidal Informant: patient Onset/Context/Timing Onset: Yesterday Context: Gradual Onset Timing: Continuous Worsened by: Situational factors Relieved by: Nothing Associated Symptoms Associated Symptoms - Psych: Positive for Depressed, Change in Eating, Decreased Interest, Hopelessness and Suicidal Thoughts; Negative for Change in sleeping, Visual Hallucinations or Auditory Hallucinations Specific plan (suicidal thought): Overdosing on ibuprofen or melatonin Narrative Narrative: Patient presents with suicidal ideations that began yesterday. Patient states he was feeling alone because his girlfriend went away for the weekend. Patient states he tried calling some other friends but felt like no one wanted to talk to him. Patient became more depressed and hopeless. Patient will be started having thoughts of hurting himself. Patient had thoughts of overdosing on either ibuprofen or melatonin. Patient states he has researched melatonin overdose in the past and does not want to overdose on melatonin. Patient denies any visual or auditory hallucinations. Patient denies any homicidal ideations. [facility] Medical History Anxiety Asthma Depression Substance abuse Home Medications ondansetron 4 mg disintegrating tablet 4 mg PO Q8H PRN nausea and vomiting #10 tabs 06/20/22 [Rx Last Taken Unknown] ondansetron HCl 4 mg tablet 4 mg PO Q6H PRN nausea and vomiting #15 tabs 08/30/22 [Rx Last Taken Unknown] Allergy/AdvReac Type Severity Reaction Status Date / Time No Known Allergies Allergy Verified 10/16/22 11:43 Surgical History History of adenoidectomy Social History Smoking Status: Current every day smoker tobacco type: cigarettes and e-cigarettes ROS ROS ED Constitutional Constitutional ED: Denies chills or fever(s) Eyes Eyes: Denies blurry vision or change in vision ENT ENT ED: Denies rhinorrhea or sore throat Cardiovascular Cardiovascular: Denies chest pain or palpitations Respiratory/Chest Respiratory/Chest: Denies cough or dyspnea Gastrointestinal Gastrointestinal: Denies nausea or vomiting Genitourinary Genitourinary ED: Denies dysuria or hematuria Musculoskeletal Musculoskeletal: Denies back pain or neck pain Integumentary Denies abscess or rash Neurologic Neurologic: Denies headache(s) or weakness Psychiatric Psychiatric: Reports depression, suicidal ideation and suicidal thoughts Allergic/Immunologic Allergic/Immunologic ED: Denies mouth swelling or urticaria EXAM Physical Exam Const Vital Signs: 10/16/22 11:39 10/16/22 14:39 Temperature 97.5 F L Temperature Source Temporal Pulse Rate 93 81 Respiratory Rate 16 14 Blood Pressure 126/71 H 126/78 H Blood Pressure Mean 89 94 Pulse Ox 100 100 Oxygen Delivery Method Room Air Room Air Positive well nourished and well developed General Appearance ED: well developed HEENT normocephalic and atraumatic Neck supple and no JVD Resp normal respiratory effort and clear to auscultation bilaterally Cardio no murmurs Rate: regular rate Rhythm: regular rhythm GI non-tender and non-distended Auscultation: normoactive bowel sounds Palpation: soft Extremity normal to inspection General Extremety ED: Negative for edema or tenderness General Extremity: Negative for edema Neuro oriented x3, CN's II-XII intact bilaterally and no sensory deficits noted Sensorium / Orientation: alert Motor Exam: strength 5/5 throughout Psych mental status grossly normal Activity / Motor Behavior: avoids eye contact Speech: minimal and soft Mood & Affect: depressed and flat affect Thought Content: suicidality, No homicidality, No delusion(s) and No hallucination(s) Skin Rashes: no rashes MDM MDM MDM Narrative Medical decision making narrative: Patient will be medically assessed for psychiatric evaluation. CBC will be obtained to assess for leukocytosis and anemia. Basic metabolic profile will be obtained to assess for electrolyte abnormality and renal function. Serum alcohol level will be obtained to assess for alcohol intoxication. Urine tox screen will be obtained to assess history of drug use. Lab Data Lab results narrative: CBC was reviewed and was within normal limits. Basic metabolic profile was reviewed and was essentially within normal limits. Serum alcohol level was reviewed and was normal. Urine tox screen was reviewed and was positive for cannabinoids. Labs: Laboratory Results - last 24 hr 10/16/22 10/16/22 10/16/22 12:05 12:05 12:05 WBC 6.0 RBC 5.21 Hgb 15.2 Hct 44.9 MCV 86.2 MCH 29.2 MCHC 33.9 RDW Std Deviation 39.6 RDW Coeff of Bart 12.5 Plt Count 251 MPV 8.3 Immature Gran % (Auto) 0.500 Neut % (Auto) 57.0 Lymph % (Auto) 29.7 [place] % (Auto) 9.5 Eos % (Auto) 2.3 Baso % (Auto) 1.0 Absolute Neuts (auto) 3.4 Absolute Lymphs (auto) 1.78 Nucleated RBC % 0 Sodium 141 Potassium 3.5 Chloride 110 H Carbon Dioxide 27.0 Anion Gap 4 L BUN 16 Creatinine 1.09 Estim Creat Clear Calc 91.18 Est GFR (MDRD) Af Amer 106 Est GFR (MDRD) Non-Af 88 BUN/Creatinine Ratio 14.7 Glucose 96 Calcium 9.5 Urine Opiates Screen Urine Methadone Screen Ur Barbiturates Screen Ur Phencyclidine Scrn Ur Amphetamines Screen MDMA (Ecstasy) Screen U Benzodiazepines Scrn Urine Cocaine Screen U Cannabinoids Screen Ur Drug Screen Comment Ethyl Alcohol < 3.0 10/16/22 14:35 WBC RBC Hgb Hct MCV MCH MCHC RDW Std Deviation RDW Coeff of Bart Plt Count MPV Immature Gran % (Auto) Neut % (Auto) Lymph % (Auto) [place] % (Auto) Eos % (Auto) Baso % (Auto) Absolute Neuts (auto) Absolute Lymphs (auto) Nucleated RBC % Sodium Potassium Chloride Carbon Dioxide Anion Gap BUN Creatinine Estim Creat Clear Calc Est GFR (MDRD) Af Amer Est GFR (MDRD) Non-Af BUN/Creatinine Ratio Glucose Calcium Urine Opiates Screen NEGATIVE Urine Methadone Screen NEGATIVE Ur Barbiturates Screen NEGATIVE Ur Phencyclidine Scrn NEGATIVE Ur Amphetamines Screen NEGATIVE MDMA (Ecstasy) Screen NEGATIVE U Benzodiazepines Scrn NEGATIVE Urine Cocaine Screen NEGATIVE U Cannabinoids Screen POSITIVE H Ur Drug Screen Comment Ethyl Alcohol Treatment and Re-Evaluation Narrative: Patient is medically cleared for crisis evaluation. Crisis will evaluate the patient for psychiatric placement. Care of the patient was turned over to the oncoming physician pending crisis evaluation. Discharge Plan Triage Chief Complaint: Suicidal ED Provider: Bentley Pierce Dx/Rx/DC Orders Clinical Impression: Depression, Suicidal thoughts Prescriptions: No Action ondansetron 4 mg tablet,disintegrating 4 mg PO Q8H PRN (Reason: nausea and vomiting) Qty: 10 0RF ondansetron HCl 4 mg tablet 4 mg PO Q6H PRN (Reason: nausea and vomiting) Qty: 15 0RF Primary Care Provider: Anel Andersen Referrals: Anel Andersen MD [Primary Care Provider] -
[2022-10-16 12:19] LABS: Absolute Lymphocyte Count 1.78 X10^3/uL (0.83-4.51); Absolute Neutrophil Count 3.4 X10^3/uL (2.0-7.7); Basophil# 0.06 X10^3/uL; Eosinophil# 0.14 X10^3/uL; Eosinophils% 2.3 % (0-5); Hematocrit 44.9 % (40-54); Hemoglobin 15.2 g/dL (13.0-16.5); Lymphocyte # 1.78 X10^3/ul (0.83-4.51); Lymphocyte % 29.7 % (19-41); Mean Corp Hgb Conc 33.9 g/dL (32-36); Mean Corpuscular Hgb 29.2 pg (27.0-32.0); Mean Corpuscular Volume 86.2 fL (80-94); Mean Platelet Vol. 8.3 fl (6.2-12.0); Monocyte# 0.57 X10^3/uL; Monocyte% 9.5 % (0-10); NRBC Flagged by Analyzer 0 % (0-5); Neutrophil # 3.42 X10^3/uL (2.7-7.7); Platelet Count 251 K/mm3 (150-450); RBC Distribution Width CV 12.5 % (11.6-14.6); RBC Distribution Width SD 39.6 fl (35.1-43.9); Red Blood Count 5.21 M/mm3 (4.6-6.2)
[2022-10-16 13:04] LABS: Alcohol, Blood (Medical)-Serum < 3.0 mg/dL
[2022-10-16 13:05] LABS: Anion Gap 4 (5-15); BUN 16 mg/dL (7-18); BUN/Creat Ratio 14.7 RATIO (10-20); Calcium,Total 9.5 mg/dL (8.5-10.1); Chloride 110 mmol/L (98-107); Creatinine, Serum 1.09 mg/dL (0.70-1.30); EST Glomerular Filtration Rate 88 mL/min (>60); Est Glom Filt Rate - Afr Amer 106 mL/min (>60); Estimated Creatinine Clearance 91.18 ml/min; Glucose 96 mg/dL (74-106); Potassium 3.5 mmol/L (3.5-5.1); Sodium Level 141 mmol/L (136-145)
[2022-10-16 14:39] VITALS: BP 126/78; PULSE 81; RESP 14; O2SAT 100
[2022-10-16 15:08] LABS: Amphetamine Urine VISTA NEGATIVE (<1000 ng/mL); Barbiturate Urine VISTA NEGATIVE (< 200 ng/mL); Benzodiazepine Urine VISTA NEGATIVE (< 200 ng/mL); Cocaine Urine VISTA NEGATIVE (< 300 ng/mL); Ecstacy Urine VISTA NEGATIVE (< 500 ng/mL); Methadone Urine VISTA NEGATIVE (< 300 ng/mL); PCP Urine VISTA NEGATIVE (< 25 ng/mL); THC Urine VISTA POSITIVE (< 50 ng/mL); Vista UDS pH Range 6
[2022-10-16 18:00] VITALS: BP 113/76; PULSE 72; RESP 14; O2SAT 100
[2022-10-16 18:49] VITALS: BP 118/78; PULSE 89; RESP 16; TEMP 36.6; O2SAT 99
== END 2022-10-16 18:50 | disposition home or self-care (01) ==
PROVIDERS: Emergency Provider Emergency Medicine; PCP Pediatrics; Visit Provider Emergency Medicine
DX: F32.A Depression, unspecified (principal); R45.851 Suicidal ideations; F17.210 Nicotine dependence, cigarettes, uncomplicated; J45.909 Unspecified asthma, uncomplicated; F17.290 Nicotine dependence, other tobacco product, uncomplicated
CPT/HCPCS: 80048; 80307; 82077; 85025; 87811; 99282

== ENCOUNTER 2023-05-25 13:43 | Emergency (ER) | payer SELFPAY ==
[2023-05-25 13:45] VITALS: TEMP 36.2; BMI 25.5
[2023-05-25 13:46] VITALS: BP 115/73; PULSE 101; RESP 18; O2SAT 100
[2023-05-25] MEDS: Lidocaine/Epi/Tetracaine 50 ML 1 APPLIC TOPICAL (14:26)
--- NOTE | 2023-05-25 14:40 | CT_ITS ---
STUDY: CT BRAIN WITHOUT CONTRAST REASON FOR EXAM: Male, 23 years old. Head injury. RADIATION DOSAGE (If Supplied By Facility): CTDIvol = ( 44.99 ) mGy, DLP = ( 829.85 ) mGycm TECHNIQUE: Transaxial CT imaging of the brain was performed without administration of intravenous contrast material. Individualized dose optimization techniques were used for this CT. COMPARISON: No relevant priors. FINDINGS: Normal soft tissue structures. Normal calvarium. Normal size ventricles and extra-axial spaces for the patient''s age. Normal white matter tracts of the cerebral hemispheres. Normal basal ganglia and thalami. Normal brainstem. Normal cerebellum. There is no intracranial hemorrhage. There are no findings of an acute ischemic infarction. Partial opacification of the left maxillary sinus. CT/Brain/Head without Contrast IMPRESSION: Partial opacification of the left maxillary sinus. No intracranial abnormality seen. Electronically Signed: Aj Lynn MD at 14:56 EDT ,
--- NOTE | 2023-05-25 15:00 | RAD_ITS ---
STUDY: X-RAY - LEFT HAND REASON FOR EXAM: Male, 23 years old. Laceration following a fall. TECHNIQUE: 3 view(s) of the hand. COMPARISON: None. FINDINGS: Normal radiocarpal articulation. Normal distal radioulnar joint. Normal visualized carpal bones. Normal carpal articulations Normal carpometacarpal articulation of the thumb. Normal second through fifth carpometacarpal joints. Normal metacarpi. Normal metacarpophalangeal joint of the thumb. Normal interphalangeal joint of the thumb. Normal proximal and distal phalanges of the thumb. Normal metacarpophalangeal joints of the second through fifth fingers. Normal proximal and distal interphalangeal joints of the second through fifth fingers. Normal phalanges of the second through fifth fingers. The soft tissue structures are unremarkable. No radiopaque foreign body is seen. RAD/Hand Min 3 Views IMPRESSION: Normal x-ray examination of the hand. Electronically Signed: Aj Lynn MD at 15:14 EDT ,
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
[2023-05-25] MEDS: Naproxen 500 MG Tablet PO (15:51)
== END 2023-05-25 15:52 | disposition home or self-care (01) ==
PROVIDERS: Emergency Provider Emergency Medicine; PCP Pediatrics; Visit Provider Emergency Medicine
DX: S61.412A Laceration without foreign body of left hand, initial encounter (principal); F17.210 Nicotine dependence, cigarettes, uncomplicated; F17.290 Nicotine dependence, other tobacco product, uncomplicated; V18.0XXA Pedal cycle driver injured in noncollision transport accident in nontraffic accident, initial encounter; Y93.55 Activity, bike riding; Y92.89 Other specified places as the place of occurrence of the external cause; S00.93XA Contusion of unspecified part of head, initial encounter
CPT/HCPCS: 70450; 73130; 99283

== ENCOUNTER 2023-05-29 13:22 | Emergency (ER) | payer SELFPAY ==
[2023-05-29 13:24] VITALS: BP 142/87; PULSE 85; RESP 18; TEMP 36.4; O2SAT 99; BMI 26.7
[2023-05-29 14:02] LABS: Absolute Lymphocyte Count 1.39 X10^3/uL (0.83-4.51); Basophil# 0.06 X10^3/uL; Basophil% 1.1 % (0-1); Eosinophil# 0.19 X10^3/uL; Eosinophils% 3.5 % (0-5); Hematocrit 41.1 % (40-54); Hemoglobin 13.4 g/dL (13.0-16.5); Lymphocyte # 1.39 X10^3/ul (0.83-4.51); Lymphocyte % 25.6 % (19-41); Mean Corp Hgb Conc 32.6 g/dL (32-36); Mean Corpuscular Hgb 29.3 pg (27.0-32.0); Mean Corpuscular Volume 89.9 fL (80-94); Mean Platelet Vol. 8.2 fl (6.2-12.0); Monocyte# 0.75 X10^3/uL; Monocyte% 13.8 % (0-10); NRBC Flagged by Analyzer 0 % (0-5); Neutrophil % 55.4 % (47-70); Platelet Count 249 K/mm3 (150-450); RBC Distribution Width CV 13.2 % (11.6-14.6); RBC Distribution Width SD 43.4 fl (35.1-43.9); Red Blood Count 4.57 M/mm3 (4.6-6.2); White Blood Count 5.4 K/mm3 (4.4-11.0)
[2023-05-29 14:19] LABS: Anion Gap 4 (5-15); BUN 14 mg/dL (7-18); BUN/Creat Ratio 13.9 RATIO (10-20); Calcium,Total 8.9 mg/dL (8.5-10.1); Chloride 107 mmol/L (98-107); Creatinine, Serum 1.01 mg/dL (0.70-1.30); EST Glomerular Filtration Rate 95 mL/min (>60); Est Glom Filt Rate - Afr Amer 115 mL/min (>60); Estimated Creatinine Clearance 111.81 ml/min; Glucose 96 mg/dL (74-106); Potassium 3.6 mmol/L (3.5-5.1); Sodium Level 140 mmol/L (136-145)
[2023-05-29 14:26] LABS: Alcohol, Blood (Medical)-Serum < 3.0 mg/dL
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
--- NOTE | 2023-05-29 14:59 | ED.RN ---
DR. COLLAZO STATES NO SITTER NEEDED
== END 2023-05-29 16:45 | disposition home or self-care (01) ==
PROVIDERS: Emergency Provider Student in an Organized Health Care Education/Training Program; PCP Pediatrics; Visit Provider Student in an Organized Health Care Education/Training Program
DX: R45.851 Suicidal ideations (principal); F17.210 Nicotine dependence, cigarettes, uncomplicated; F32.A Depression, unspecified; F17.290 Nicotine dependence, other tobacco product, uncomplicated
CPT/HCPCS: 80048; 82077; 85025; 99283

== ENCOUNTER 2024-01-25 09:26 | Emergency (ER) | payer MEDICAID, SELFPAY ==
[2024-01-25 09:28] VITALS: BP 126/86; PULSE 62; RESP 14; TEMP 37.2; O2SAT 98; BMI 25.5
--- NOTE | 2024-01-25 10:27 | RAD_ITS ---
STUDY: X-RAY CHEST REASON FOR EXAM: Male, 23 years old. Cough TECHNIQUE: PA and lateral views of the chest. COMPARISON: Comparison is made with prior study dated August 30, 2021. FINDINGS: The lungs are clear and expanded. There is no demonstrated pleural abnormality. Normal size heart. Normal mediastinum and sari. Normal visualized pulmonary arteries. Normal visualized aortic arch and descending thoracic aorta. Normal visualized thoracic spine. Normal visualized ribs, clavicles, and shoulders. There is no demonstrated abnormality of the visualized soft tissue structures of the upper abdomen. RAD/Chest PA and Lateral IMPRESSION: Normal x-ray examination of the chest. Electronically Signed: Aj Lynn MD at 10:50 EDT ,
--- NOTE | 2024-01-25 12:07 | EX.ED.DYSGE1 ---
HPI History of Present Illness Chief Complaint: Cough Informant: patient Onset/Context/Timing Onset: Days (3 days) Context: Gradual Onset Narrative Narrative: Patient presents with 3-day history of cough and congestion. He complains of congestion in his upper chest and states he is clearing his throat frequently. He denies fever or chills. He does have a history of asthma but does not feel as if he is wheezing. He has been taking Tylenol, ibuprofen, and NyQuil without significant improvement. [facility] Medical History Anxiety Asthma Depression Substance abuse Home Medications NK 01/25/24 [History Last Taken Unknown] Allergy/AdvReac Type Severity Reaction Status Date / Time No Known Allergies Allergy Verified 01/25/24 09:27 Surgical History History of adenoidectomy Social History Smoking Status: Current every day smoker tobacco type: cigarettes and e-cigarettes ROS ROS ED Constitutional Constitutional ED: Denies chills or fever(s) Eyes Eyes: Denies change in vision or discharge from eye(s) ENT ENT ED: Reports other Details: Congestion ; Denies discharge from eye(s), rhinorrhea or sore throat Cardiovascular Cardiovascular: Denies chest pain or palpitations Respiratory/Chest Respiratory/Chest: Reports cough and dyspnea Gastrointestinal Gastrointestinal: Denies abdominal pain, nausea or vomiting Genitourinary Genitourinary ED: Denies dysuria Musculoskeletal Musculoskeletal: Denies back pain or extremity pain Integumentary Denies Abrasions or rash Neurologic Neurologic: Denies headache(s) or weakness Psychiatric Psychiatric: Denies anxiety or depression Allergic/Immunologic Allergic/Immunologic ED: Denies lip swelling or urticaria EXAM Physical Exam Const Vital Signs: 01/25/24 09:28 01/25/24 09:46 Temperature 99 F Temperature Source Temporal Pulse Rate 62 Respiratory Rate 14 Respiratory Depth Normal Respiratory Pattern Normal Blood Pressure 126/86 H Blood Pressure Mean 99 Pulse Ox 98 Oxygen Delivery Method Room Air Positive well nourished and well developed General Appearance ED: well developed HEENT Reports moist mucous membranes HEENT Narrative: Posterior pharynx exam unremarkable. Uvula midline. Eyes EOMs intact bilaterally Neck Neck Narrative: Very mild cervical lymphadenopathy bilaterally. Trachea midline. Chest Wall inspection of chest normal and palpation of chest normal Resp normal respiratory effort and clear to auscultation bilaterally Cardio regular rate and regular rhythm GI non-tender Palpation: soft Extremity normal to inspection Neuro oriented x3 and no sensory deficits noted Motor Exam: strength 5/5 throughout Psych mental status grossly normal Skin no rashes or lesions noted MDM MDM MDM Narrative Medical decision making narrative: Swab for COVID, influenza, and RSV will be obtained. Chest x-ray obtained to evaluate potential infiltrate. Radiography Diagnostic Testing: Clinical Impression(s) from Imaging Studies Chest X-Ray 01/25/24 10:27 IMPRESSION: Normal x-ray examination of the chest. Electronically Signed: Aj Lynn MD at 10:50 EDT , Treatment and Re-Evaluation :: Swab for COVID, influenza, and RSV is negative. Two-view chest x-ray per my interpretation reveals no focal infiltrate or acute abnormality. Radiology interpretation reviewed and agrees. Test results discussed with the patient. He is comfortable discharge to home and will continue supportive care. Discharge Plan Triage Chief Complaint: Cough ED Provider: Annie Painting Dx/Rx/DC Orders Clinical Impression: Viral URI with cough Instructions: ED URI, Viral, No Abx (Adult) Prescriptions: No Action NK Primary Care Provider: Care Physician,No Primary Referrals: Leonel Michel MD [Med Staff - Computer Help Desk Representative] - As Needed Care Physician,No Primary [Primary Care Provider] - Disposition Disposition: Home, Self Care Discharge Date/Time: 01/25/24 12:22
== END 2024-01-25 12:22 | disposition home or self-care (01) ==
PROVIDERS: Emergency Provider Emergency Medicine; Visit Provider Emergency Medicine
DX: J06.9 Acute upper respiratory infection, unspecified (principal); F17.210 Nicotine dependence, cigarettes, uncomplicated; R05.9 Cough, unspecified; F17.290 Nicotine dependence, other tobacco product, uncomplicated
CPT/HCPCS: 71046; 87631; 99282

== ENCOUNTER 2024-02-03 19:22 | Emergency (ER) | payer MEDICAID, SELFPAY ==
[2024-02-03 19:22] VITALS: BP 121/79; PULSE 103; RESP 17; TEMP 36.8; O2SAT 98; BMI 25.4
--- NOTE | 2024-02-03 19:36 | EX.ED.VIS.UR ---
HPI HPI - URI History of Present Illness Chief Complaint: Cold Sx Detail of Chief Complaint: Upper respiratory symptoms for 2.5 weeks. Informant: patient Onset/Context/Timing Onset: Weeks Context: Sudden Onset Timing: Continuous and Waxes and wanes Quality: Productive cough and no improvement Location: Upper respiratory Current Severity: Mild Maximum Severity: Moderate Worsened by: Not Worsened By Swallowing, Eating Solids or Drinking Liquids Relieved by: Not Relieved By Tylenol or NSAIDs Associated Symptoms Associated Symptoms: Positive for Nasal Congestion, Headache, Sinus Pressure, Shortness of Breath and Productive Cough; Negative for Myalgias, Nausea, Vomiting, Diarrhea, Chest Pain or Hemoptysis Narrative Narrative: Patient is a 24-year-old male. Does have history of asthma. He is a smoker. When asked how much his response was a lot . He also smokes weed daily. He denies fever or chills. He does endorse headache. No double vision blurred vision loss of vision. Does endorse sore throat. Does have a cough that is productive. He states that initially was a neon green color. It is clearing. He denies GI symptoms. He denies myalgia arthralgias. He denies skin lesions. Prior similar symptoms: Yes Recent Illness/Hospitalization: Yes ROS [facility] ED Constitutional Constitutional ED: Denies chills, fever(s), subjective or sweats Eyes Eyes: Denies blurry vision or change in vision ENT ENT ED: Reports rhinorrhea and sore throat; Denies ear pain Cardiovascular Cardiovascular: Denies chest pain, orthopnea, palpitations or paroxysmal nocturnal dyspnea Respiratory/Chest Respiratory/Chest: Reports cough, dyspnea and sputum; Denies dyspnea on exertion, orthopnea or paroxysmal nocturnal dyspnea Gastrointestinal Gastrointestinal: Denies abdominal pain, diarrhea, nausea or vomiting Genitourinary Genitourinary ED: Denies dysuria, hematuria or urinary frequency Integumentary Denies rash Neurologic Neurologic: Reports headache(s); Denies paresthesias or weakness Hematologic/Lymphatic Hematologic/Lymphatic: Denies easy bleeding or easy bruising [facility] Medical History Anxiety Asthma Depression Substance abuse Home Medications albuterol sulfate 90 mcg/actuation aerosol inhaler (Ventolin HFA) 2 puff inhalation Q4H PRN PRN Wheezing ##1 02/03/24 [Rx Last Taken Unknown] Allergy/AdvReac Type Severity Reaction Status Date / Time No Known Allergies Allergy Verified 02/03/24 19:23 Surgical History History of adenoidectomy Social History (Updated 02/03/24 @ 19:[address] Akira Hua MD) household members: none Smoking Status: Current every day smoker tobacco type: cigarettes and e-cigarettes EXAM Physical Exam Const Vital Signs: 02/03/24 19:22 Temperature 98.2 F Temperature Source Temporal Pulse Rate 103 H Respiratory Rate 17 Blood Pressure 121/79 H Blood Pressure Mean 93 Pulse Ox 98 Oxygen Delivery Method Room Air Positive well nourished and well developed General Appearance ED: well developed and NAD; Negative for cyanotic, diaphoretic or pallor HEENT Reports moist mucous membranes normocephalic and atraumatic Face and Sinus: Negative for sinus tenderness Throat: posterior oropharynx normal Eyes PERRL and EOMs intact bilaterally General Eye ED: Negative for pale conjunctiva or scleral icterus Neck no lymphadenopathy, supple and no meningeal signs Resp normal respiratory effort and clear to auscultation bilaterally Cardio S1 normal heart sound, S2 normal heart sound and no murmurs Rate: regular rate Rhythm: regular rhythm Back/Spine no CVA tenderness Extremity normal to inspection and full ROM Neuro oriented x3 and CN's II-XII intact bilaterally Sensorium / Orientation: alert Psych mental status grossly normal Skin General Skin Exam: Negative for jaundice or pallor Lesions: no lesions Rashes: no rashes MDM MDM MDM Narrative Medical decision making narrative: Patient presents with persistent upper respiratory symptoms. Patient was informed the recent he is not getting better is because he smokes and continues to smoke. Since his inhaler is empty he was given a prescription for albuterol MDI. He was informed that he needs to stop smoking. He may be sick for another 2+ weeks if because he is a smoker. Patient was told he would receive a note indicating he did come to the emergency room to be evaluated. Since there are no abnormal oscillatory findings his sputum is clearing there is no indication for x-ray or antibiotics at this point. History & Record Review Additional record(s) reviewed:: Prior ED visit Discharge Plan Triage Chief Complaint: Cold Sx ED Provider: Akira Hua Dx/Rx/DC Orders Clinical Impression: Upper respiratory infection with cough and congestion, History of asthma, Tachycardia, Elevated blood-pressure reading without diagnosis of hypertension Instructions: ED URI, Viral, No Abx (Adult) Prescriptions: New albuterol sulfate [Ventolin HFA] 90 mcg/actuation HFA aerosol inhaler 2 puff inhalation Q4H PRN PRN (Reason: Wheezing) Qty: 1 0RF Stand Alone Forms: ED Work / School Excuse Primary Care Provider: Care Physician,No Primary Referrals: Care Physician,No Primary [Primary Care Provider] - Doctor,Your [Non-Staff] - 10-14 Days if not better Activity Restrictions/Additional Instructions: 1. Is your best interest to quit smoking 2. Since you are a smoker you may have a cough for another 2 to 3 weeks 3. 2 puffs of inhaler every 2-4 hours while awake for the next 3 days and every 4-6 hours as needed for wheezing or shortness of breath Disposition Disposition: Home, Self Care
== END 2024-02-03 20:11 | disposition home or self-care (01) ==
PROVIDERS: Emergency Provider Emergency Medicine; Visit Provider Emergency Medicine
DX: J06.9 Acute upper respiratory infection, unspecified (principal); F17.210 Nicotine dependence, cigarettes, uncomplicated; R05.9 Cough, unspecified; R00.0 Tachycardia, unspecified; J45.909 Unspecified asthma, uncomplicated; R03.0 Elevated blood-pressure reading, without diagnosis of hypertension; R09.81 Nasal congestion; F17.290 Nicotine dependence, other tobacco product, uncomplicated
CPT/HCPCS: 99282

== ENCOUNTER 2024-11-20 21:30 | Emergency (ER) | payer MEDICAID, SELFPAY ==
[2024-11-20 21:30] VITALS: BP 129/76; PULSE 56; RESP 17; TEMP 36.2; O2SAT 99; BMI 25.2
[2024-11-20 23:30] VITALS: BP 129/74; PULSE 56; RESP 16; O2SAT 96
--- NOTE | 2024-11-20 23:47 | EDS_ITS ---
HPI HPI - GI History of Present Illness Chief Complaint: Nausea/Vomiting/Diarrhea Informant: patient Nausea/Vomiting/Emesis GI Symptom: Positive for Nausea and Vomiting Onset: Today and Hours Severity: Mild Diarrhea/Melena/Hematochezia GI Symptom: Positive for Diarrhea Onset: Today Stool Quality: Positive for Loose Severity: Mild Associated Symptoms Associated Symptoms: Negative for Dysuria or Hematuria Narrative Narrative: 24-year-old male no seen past medical or surgical history. States in the last 3 hours he has had nausea and vomiting several times and several episodes of diarrhea. Denies any hematemesis. No melena. No fever or abdominal pain. He has been around others who have been ill recently. He denies any prior abdominal surgeries. Prior similar symptoms: Yes Recent Illness/Hospitalization: No PFSH PFSH Medical History Substance abuse Anxiety Depression Asthma Home Medications ?Medication ?Instructions ?Recorded ?Last Taken ?Type albuterol sulfate 90 mcg/actuation 2 puff inhalation Q 4H PRN PRN 02/03/24 Unknown Rx aerosol inhaler (Ventolin HFA) Wheezing ##1 ondansetron 4 mg disintegrating 4 mg PO Q6H PRN nausea and 11/20/24 Unknown Rx tablet vomiting #7 tabs Allergy/AdvReac Type Severity Reaction Status Date / Time No Known Allergies Allergy Verified 11/20/24 21:30 Family History no significant family his Surgical History History of adenoidectomy Social History household members: none Smoking Status: Current every day smoker tobacco type: cigarettes and e-cigaret olga ROS ROS ED ROS Narrative Nausea, vomiting and diarrhea. No abdominal pain. Constitutional Constitutional ED: Denies chills or fever(s) ENT ENT ED: Denies ear pain Cardiovascular Cardiovascular: Denies chest pain Respiratory/Chest Respiratory/Chest: Denies cough or dyspnea Gastrointestinal Gastrointestinal: Reports diarrhea, nausea and vomiting; Denies abdominal pain, constipation or melena Genitourinary Genitourinary ED: Denies dysuria or hematuria Musculoskeletal Musculoskeletal: Denies arthralgias or back pain Integumentary Denies abscess or Abrasions Neurologic Neurologic: Denies headache(s) Psychiatric Psychiatric: Denies anxiety or depression Endocrine Endocrinology: Denies polydipsia or polyphagia Hematologic/Lymphatic Hematologic/Lymphatic: Denies easy bleeding, easy bruising or lymphadenopathy Allergic/Immunologic Allergic/Immunologic ED: Denies mouth swelling, tongue swelling or urticaria EXAM Physical Exam Narrative Exam Narrative: 24-year-old male no acute distress. Vital signs are stable afebrile. Patient does not look septic or toxic. He does not look significantly dehydrated. H EENT exam moist use membranes. Neck nontender no JVD. Lungs clear to auscultation. Heart regular rhythm rate about 60 no murmur. Chest wall ribs nontender. Abdomen soft, nontender, nondistended, normal bowel sounds without peritoneal signs. Patient is moving all 4 extremities. Calves are nontender. No edema. Skin without rashes. Back nontender. Neurologically is awake and alert no focal motor deficits. He is ambulating in the room. Const Vital Signs: 11/20/24 21:30 11/20/24 23:30 11/21/24 01:00 Temperature 97.1 F L Temperature Source Temporal Pulse Rate 56 L 56 L 62 Respiratory Rate 17 16 16 Blood Pressure 129/76 H 129/74 H 122/74 H Blood Pressure Mean 93 92 90 Pulse Ox 99 96 98 Oxygen Delivery Method Room Air Room Air Positive well nourished and well developed; Negative for obese, cachectic, contractures or unkempt General Appearance ED: well developed and NAD; Negative for unkempt, cachectic, contractures or pallor Nutritional Appearance: Negative for cachectic or obese HEENT Reports moist mucous membranes normocephalic and atraumatic; Negative for trauma or tenderness Eyes PERRL and EOMs intact bilaterally General Eye ED: Negative for pale conjunctiva Neck no lymphadenopathy, supple and no JVD General: Negative for tenderness Carotids: Negative for other Lymph Lymphatic: Negative for other Resp normal respiratory effort and clear to auscultation bilaterally Effort and Inspection: Negative for respiratory distress Auscultation: Negative for rales, rhonchi, wheezes or diminished lung sounds Cardio regular rate, regular rhythm, S1 normal heart sound, S2 normal heart sound and no murmurs Rate: Negative for bradycardia or tachycardic Rhythm: Negative for abnormal rhythm GI non-tender, non-distended and no masses Inspection: Negative for abdominal distention Auscultation: normoactive bowel sounds Palpation: soft; Negative for tender, guarding, hernia or mass Back/Spine no CVA tenderness General Back: Negative for CVA tenderness Cervical Spine: Negative for cervical spine tenderness Thoracic Spine / Upper Back: Negative for thoracic spinal tenderness Lumbar Spine / Lower Back: Negative for lumbar spinal tenderness Extremity full ROM General Extremety ED: Negative for edema or tenderness General Extremity: Negative for edema Neuro CN's II-XII intact bilaterally and moves all extremities Sensorium / Orientation: alert, oriented to person, oriented to place and oriented to time; Negative for orientation impaired or confused Motor Exam: strength 5/5 throughout Psych mental status grossly normal and thought process normal Appearance: Negative for unkempt Attitude: No agitated Mood & Affect: Negative for depressed, anxious or tearful Skin no wounds General Skin Exam: Negative for jaundice or pallor Lesions: no lesions Rashes: no rashes Trauma: Negative for abrasion Nails: Negative for discolored MDM MDM MDM Narrative Medical decision making narrative: 24-year-old male with viral gastroenteritis. Abdomen is benign. We discussed treatment options he wants to try p.o. Zofran and p.o. fluid challenge. He is able to tolerate that will be discharged to home if not we may have to give him IV fluids and IV Zofran. He does not need any labs or imaging at this time he is only been ill for the last 3 hours. Patient handled Zofran well. States he is feeling better repeat exam at 1:03 AM. He has been able to hold down some water. He feels comfortable being discharged home. He will be written for Zofran and prescription sent to his pharmacy. History & Record Review Discussion w/independent historian: Patient Discharge Plan Triage Chief Complaint: Nausea/Vomiting/Diarrhea ED Provider: Mario Garcia Dx/Rx/DC Orders Clinical Impression: Viral gastroenteritis Instructions: ED Gastroenteritis, Viral (Adult) Prescriptions: New ondansetron 4 mg tablet,disintegrating 4 mg PO Q6H PRN (Reason: nausea and vomiting) Qty: 7 0RF No Action albuterol sulfate [Ventolin HFA] 90 mcg/actuation HFA aerosol inhaler 2 puff inhalation Q4H PRN PRN (Reason: Wheezing) Qty: 1 0RF Primary Care Provider: Care Physician,No Primary Referrals: Cullen Thayer MD [Med Staff - Active Staff] - 3-5 Days if not improving Care Physician,No Primary [Primary Care Provider] - Activity Restrictions/Additional Instructions: Plenty of fluids and rest. Slowly increase your diet as tolerated. Zofran as needed for nausea you can swallow or let dissolve on your tongue. Follow-up with a local primary care physician if not improving or return if feeling worse. Print Language: Georgian Disposition Disposition: Home, Self Care
[2024-11-20] MEDS: Ondansetron ODT 4 MG Tablet PO (23:54)
[2024-11-21 01:00] VITALS: BP 122/74; PULSE 62; RESP 16; O2SAT 98
== END 2024-11-21 01:05 | disposition home or self-care (01) ==
PROVIDERS: Emergency Provider Emergency Medicine; Visit Provider Emergency Medicine
DX: A08.4 Viral intestinal infection, unspecified (principal); F17.210 Nicotine dependence, cigarettes, uncomplicated; F17.290 Nicotine dependence, other tobacco product, uncomplicated
CPT/HCPCS: J2405; 99282; A4216